=== PATIENT | female | born 1960 | race Caucasian/White ===

== ENCOUNTER 2017-03-07 09:25 | Inpatient (IN) | payer OTHER ==
[~2017-03-07] VITALS: Ht 167.6 cm; Wt 94.7 kg
[2017-03-07] VITALS (11 sets, daily range): BP systolic 108–135; BP diastolic 51–74; PULSE 80–102; RESP 18–24; TEMP 97.6–98.2; O2SAT 94–100
[2017-03-07] MEDS ORDERED: SODIUM CHLOR 0.9% 1000 ML INJ 1,000 ML IV SCH (09:53)
[2017-03-07] MEDS ORDERED: ONDANSETRON HCL 4 MG/2 ML VIAL IV PUSH ONE ×2 (10:00→12:00)
[2017-03-07] MEDS ORDERED: SODIUM CHLORIDE 0.9% FLUSH 10 ML FLUSH IV FLUSH PRN ×2 (10:00→12:15)
[2017-03-07] MEDS ORDERED: ONDANSETRON HCL 4 MG/2 ML VIAL IVP ONE (10:00)
[2017-03-07] MEDS ORDERED: MORPHINE SULFATE 8 MG/ML INJ IV PUSH ONE (10:00)
[2017-03-07 10:11] LABS: AUTOMATED NEUTROPHIL # 10.7 TH/MM3 (1.8-7.7); BASOPHIL % 0.1 % (0.0-2.0); EOSINOPHIL # 0.1 TH/MM3 (0-0.4); EOSINOPHIL % 0.6 % (0.0-4.0); HEMO FLAGS AUTO DIFF; LYMPH % 6.1 % (9.0-44.0); LYMPHOCYTE # 0.7 TH/MM3 (1.0-4.8); MEAN CELL VOLUME 81.6 FL (80.0-100.0); MEAN CORPUSCULAR HEMOGLOBIN 27.7 PG (27.0-34.0); MEAN CORPUSCULAR HGB CONC 33.9 % (32.0-36.0); MONO % 6.1 % (0.0-8.0); NEUT % 87.1 % (16.0-70.0); PLATELET COUNT 484 TH/MM3 (150-450); RED BLOOD COUNT 4.78 MIL/MM3 (4.00-5.30); RED CELL DISTRIBUTION WIDTH 12.1 % (11.6-17.2); WHITE BLOOD COUNT 12.2 TH/MM3 (4.0-11.0)
[2017-03-07 10:13] LABS: SCAN/DIFF AUTO DIFF CONFIRMED
[2017-03-07 10:21] LABS: CHLORIDE 93 MEQ/L (98-107); POTASSIUM 3.6 MEQ/L (3.5-5.1); SODIUM (NA) 129 MEQ/L (136-145)
[2017-03-07 10:23] LABS: APTT (PATIENT) 24.7 SEC (24.3-30.1); INTERNATIONAL NORMALIZED RATIO 1.2 RATIO; PROTHROMBIN TIME - PATIENT 13.6 SEC (9.8-11.6)
[2017-03-07 10:25] LABS: ANION GAP 8 MEQ/L (5-15); BICARBONATE 28.1 MEQ/L (21.0-32.0); BLOOD UREA NITROGEN 13 MG/DL (7-18)
[2017-03-07 10:27] LABS: ALT (GPT) 54 U/L (10-53)
[2017-03-07 10:28] LABS: AST (GOT) 29 U/L (15-37); GLOMERULAR FILTRATION RATE 90 ML/MIN (>89)
[2017-03-07 10:29] LABS: TOTAL BILIRUBIN ADULT 1.1 MG/DL (0.2-1.0)
--- NOTE | 2017-03-07 10:29 | PD ---
HPI Chief Complaint: Abdominal Pain Time Seen by Provider: 09:42 Travel History International Travel<30 days: No Contact w/Intl Traveler<30days: No Traveled to known affect area: No History of Present Illness HPI 56 yo F c/o nausea and vomiting over the past 2 days, severe associated with inability to tolerate oral hydration. no fever. + hx colonic mass with plan for surgery discussed but nothing scheduled. no diarrhea. pt denies flatus for the past 24 hours. pt describes sensation of abdominal distension very mild severity constant and worsening. PFSH Past Medical History Medical History: Denies Significant Hx Influenza Vaccination: No ?: Not Menopausal: Yes Past Surgical History Surgical History: No Previous Surgery Social History Alcohol Use: Yes (VERY RARE) Tobacco Use: No Substance Use: No Allergies-Medications (Allergen,Severity, Reaction): Coded Allergies: codeine (Verified Allergy, Unknown, Appetite Changes(/Dec), 03/07/17) Reported Meds & Prescriptions Reported Meds & Active Scripts Active No Active Prescriptions or Reported Medications Review of Systems Except as stated in HPI: all other systems reviewed are Neg General / Constitutional: Positive: Fever (intermittently over the past few months) Gastrointestinal: Positive: Nausea, Vomiting Physical Exam Narrative GENERAL: 56 yo F, WNWD, mild to moderate distress, speaking sentences SKIN: Warm and dry. HEAD: Atraumatic. Normocephalic. EYES: Pupils equal and round. No scleral icterus. No injection or drainage. ENT: Dry mucous membranes. No rhinorrhea or epistaxis. No otorrhea. NECK: Trachea midline. No JVD. CARDIOVASCULAR: Tachycardia of approximately 96. Regular rhythm. RESPIRATORY: No accessory muscle use. Clear to auscultation. Breath sounds equal bilaterally. GASTROINTESTINAL: Mildly distended. Diffuse TTP. MUSCULOSKELETAL: Extremities without clubbing, cyanosis, or edema. No obvious deformities. NEUROLOGICAL: Awake and alert. No obvious cranial nerve deficits. Motor grossly within normal limits. Five out of 5 muscle strength in the arms and legs. Normal speech. PSYCHIATRIC: Appropriate mood and affect; insight and judgment normal. Data Data Last Documented VS Vital Signs Date Time Temp Pulse Resp B/P (MAP) Pulse Ox O2 Delivery O2 Flow Rate FiO2 03/07/17 11:18 84 20 126/59 (81) 96 Room Air 03/07/17 10:17 97.6 VS reviewed Orders Orders Complete Blood Count With Diff (03/07/17 09:53) Comprehensive Metabolic Panel (03/07/17 09:53) Lipase (03/07/17 09:53) Lactic Acid (03/07/17 09:53) Prothrombin Time / Inr (Pt) (03/07/17 09:53) Act Partial Throm Time (Ptt) (03/07/17 09:53) Urinalysis - C+S If Indicated (03/07/17 09:53) Ct Abd/Pel W Iv Contrast(Rout) (03/07/17 09:53) Iv Access Insert/Monitor (03/07/17 09:53) Ecg Monitoring (03/07/17 09:53) Oximetry (03/07/17 09:53) Ondansetron Inj (Zofran Inj) (03/07/17 10:00) Sodium Chlor 0.9% 1000 Ml Inj (Ns 1000 M (03/07/17 09:53) Sodium Chloride 0.9% Flush (Ns Flush) (03/07/17 10:00) Morphine Inj (Morphine Inj) (03/07/17 10:00) Ondansetron Inj (Zofran Inj) (03/07/17 10:00) Iohexol 350 Inj (Omnipaque 350 Inj) (03/07/17 11:05) Piperacil-Tazo 4.5 Gm Premix (Zosyn 4.5 (03/07/17 11:30) Admit Order (Ed Use Only) (03/07/17 ) [employer] / Telemetry [id number] (03/07/17 11:46) Vital Signs (Adult) Q4H (03/07/17 11:46) Diet Npo (03/07/17 Lunch) Activity Bed Rest (03/07/17 11:46) Notify Dr: Other (03/07/17 11:46) Labs Laboratory Tests Test 03/07/17 10:00 White Blood Count 12.2 TH/MM3 Red Blood Count 4.78 MIL/MM3 Hemoglobin 13.3 GM/DL Hematocrit 39.0 % Mean Corpuscular Volume 81.6 FL Mean Corpuscular Hemoglobin 27.7 PG Mean Corpuscular Hemoglobin Concent 33.9 % Red Cell Distribution Width 12.1 % Platelet Count 484 TH/MM3 Mean Platelet Volume 7.4 FL Neutrophils (%) (Auto) 87.1 % Lymphocytes (%) (Auto) 6.1 % Monocytes (%) (Auto) 6.1 % Eosinophils (%) (Auto) 0.6 % Basophils (%) (Auto) 0.1 % Neutrophils # (Auto) 10.7 TH/MM3 Lymphocytes # (Auto) 0.7 TH/MM3 Monocytes # (Auto) 0.7 TH/MM3 Eosinophils # (Auto) 0.1 TH/MM3 Basophils # (Auto) 0.0 TH/MM3 CBC Comment AUTO DIFF Differential Comment AUTO DIFF CONFIRMED Prothrombin Time 13.6 SEC Prothromb Time International Ratio 1.2 RATIO Activated Partial Thromboplast Time 24.7 SEC Blood Urea Nitrogen 13 MG/DL Creatinine 0.67 MG/DL Random Glucose 185 MG/DL Total Protein 7.5 GM/DL Albumin 2.6 GM/DL Calcium Level 10.1 MG/DL Alkaline Phosphatase 210 U/L Aspartate Amino Transf (AST/SGOT) 29 U/L Alanine Aminotransferase (ALT/SGPT) 54 U/L Total Bilirubin 1.1 MG/DL Sodium Level 129 MEQ/L Potassium Level 3.6 MEQ/L Chloride Level 93 MEQ/L Carbon Dioxide Level 28.1 MEQ/L Anion Gap 8 MEQ/L Estimat Glomerular Filtration Rate 90 ML/MIN Lactic Acid Level 2.1 mmol/L Lipase 632 U/L MDM Medical Decision Making Medical Screen Exam Complete: Yes Emergency Medical Condition: Yes Medical Record Reviewed: Yes Differential Diagnosis Gastritis, pancreatitis, appendicitis, acute cholecystitis, ascending cholangitis, AAA, perforated viscous, mesenteric ischemia, hepatitis, cystitis, hydronephrosis/hydroureter/nephroureter calculus, mesenteric adenitis, biliary colic, small bowel obstruction, obstruction Narrative Course CBC & BMP Diagram 03/07/17 10:00 Total Protein 7.5, Albumin 2.6 L, Calcium Level 10.1, Alkaline Phosphatase 210 H , Aspartate Amino Transf (AST/SGOT) 29, Alanine Aminotransferase (ALT/SGPT) 54 H , Total Bilirubin 1.1 H Last Impressions Abdomen/Pelvis CT 03/07/17 0953 Signed Impressions: Service Date/Time: February 10:57 - CONCLUSION: 1. Large segmental sigmoid colon lesion with marked wall thickening serosal irregularity characteristic of malignancy. 2. Partial obstructive gas pattern with distention of the colon and small intestinal loops. 3. Mild ascites. 4. Suspected left lower lobe pulmonary nodule; CT of the thorax recommended for further evaluation. 5. Cholelithiasis. Findings discussed with Dr. Emery Meier MD Pt has a colonic mass with a partial obstruction. ? Infectious component per imaging and leukocytosis with neutrophilia. IVF/Zosyn started Admission to [facility], d/w Dr Ballesteros d/w Dr De La Cruz for colorectal pt to go to main for management, potential surgery No vomiting since ER arrival Critical Care Narrative Aggregate critical care time was 40 minutes. Time to perform other separately billable procedures was not included in the critical care time. My time did not include minutes spent treating any other patients simultaneously or on activities that did not directly contribute to the patient's treatment. The services I provided to this patient were to treat and/or prevent clinically significant deterioration that could result in: Sepsis, necrotic bowel I provided critical care services requiring my management, as noted below: Chart data review, documentation time, medication orders and management, vital sign assessments/reviewing monitor data, ordering and reviewing lab tests, ordering and interpreting/reviewing x-rays and diagnostic studies, care of the patient and discussion of the patient with the admitting physicians. Diagnosis Primary Impression: Colonic mass Additional Impressions: Bowel obstruction Qualified Codes: K56.609 - Unspecified intestinal obstruction, unspecified as to partial versus complete obstruction Pancreatitis Qualified Codes: K85.90 - Acute pancreatitis without necrosis or infection, unspecified Admitting Information Admitting Physician Requests: Admit Scripts No Active Prescriptions or Reported Meds Cory Land MD Mar 07, 2017 10:29
[2017-03-07 10:30] LABS: ALKALINE PHOSPHATASE 210 U/L (45-117)
[2017-03-07] MEDS ORDERED: IOHEXOL 350 MG/ML 10 ML VIAL (for RAD DIAG) IVCONTRAST ONE (11:05)
[2017-03-07] MEDS ORDERED: PIPERACIL-TAZO 4.5 GM PREMIX 100 ML IV ONE (11:30)
--- NOTE | 2017-03-07 11:37 | RADRPT ---
EXAM DATE/TIME: 03/07/2017 10:57 [facility] COMPARISON: No previous studies available for comparison. EXTERNAL COMPARISON : [facility], January 2017 INDICATIONS : Diffuse abdominal pain. Nausea and vomiting. IV CONTRAST: 85 cc Omnipaque 350 (iohexol) IV ORAL CONTRAST: No oral contrast ingested. RADIATION DOSE: 18.71 CTDIvol (mGy) MEDICAL HISTORY : None SURGICAL HISTORY : None. ENCOUNTER: Initial ACUITY: 1 day PAIN SCALE: 8/10 LOCATION: Bilateral abdomen TECHNIQUE: Volumetric scanning of the abdomen and pelvis was performed. Using automated exposure control and ad justment of the mA and/or kV according to patient size, radiation dose was kept as low as reasonably achievable to obtain optimal diagnostic quality images. DICOM format image data is available electro nically for review and comparison. FINDINGS: LOWER LUNGS: A masslike density is identified in the left lower lobe measuring approximately 1.7 cm. Right lung ba se is clear. LIVER: Homogeneous density without lesion. There is no dilation of the biliary tree. Multiple large calcifi ed gallstones are identified. Small amount of free fluid is identified along the anterior margin of t he liver. SPLEEN: Normal size without lesion. PANCREAS: Within normal limits. KIDNEYS: Normal in size and shape. There is no mass, stone or hydronephrosis. ADRENAL GLANDS: Within normal limits. VASCULAR: There is no aortic aneurysm. BOWEL/MESENTERY: Marked deformity is identified of the sigmoid colon. There is masslike segmental thickening and enlar gement of the mid sigmoid with significant aislinn-scrotal irregularity and adjacent mesenteric strandin g. The colon proximal to this segment demonstrates significant distention. There are mildly distended fluid-filled loops of small bowel throughout the abdomen. Free fluid is identified in the pelvic cul -de-sac. ABDOMINAL WALL: Within normal limits. RETROPERITONEUM: Subcentimeter retroperitoneal lymph nodes are identified. The largest is located at the aortoiliac bi furcation and measures 9 mm. BLADDER: No wall thickening or mass. REPRODUCTIVE: Within normal limits. INGUINAL: There is no lymphadenopathy or hernia. MUSCULOSKELETAL: Within normal limits for patient age. CONCLUSION: 1. Large segmental sigmoid colon lesion with marked wall thickening serosal irregularity characterist ic of malignancy. 2. Partial obstructive gas pattern with distention of the colon and small intestinal loops. 3. Mild ascites. 4. Suspected left lower lobe pulmonary nodule; CT of the thorax recommended for further evaluation. 5. Cholelithiasis. Findings discussed with Dr. Emery Meier MD on March 07, 2017 at 11:20 Board Certified Radiologist. This report was verified electronically.
[2017-03-07] MEDS ORDERED: ROCURONIUM INJ 50 MG/5 ML SYRINGE IV PUSH ONE (12:00)
[2017-03-07] MEDS ORDERED: MIDAZOLAM HCL 2 MG/2 ML VIAL IV ONE (12:00)
[2017-03-07] MEDS ORDERED: PHENYLEPH/NS 1000 MCG/10 ML SYR IV ONE (12:00)
[2017-03-07] MEDS ORDERED: SUCCINYLCHOLINE CHLORIDE 100 MG/5 ML SYRINGE IV PUSH ONE (12:00)
[2017-03-07] MEDS ORDERED: ePHEDrine/NS 25 MG/5 ML SYR IV ONE (12:00)
[2017-03-07] MEDS ORDERED: DEXAMETHASONE SOD PHOS 4 MG/ML VIAL IV ONE (12:00)
[2017-03-07] MEDS ORDERED: PROPOFOL 200 MG/20 ML AMP IV ONE (12:00)
[2017-03-07] MEDS ORDERED: LIDOCAINE HCL 1% PF 5 ML AMPULE OTHER ONE (12:00)
[2017-03-07] MEDS ORDERED: LACTATED RINGER'S 1000 ML INJ 1,000 ML IV ONE ×3 (12:00→22:00)
[2017-03-07] MEDS ORDERED: NORMOSOL R INJ 2,000 ML IV ONE (12:00)
[2017-03-07] MEDS ORDERED: BISACODYL 10 MG SUPP RECTAL PRN (12:15)
[2017-03-07] MEDS ORDERED: MAGNESIUM HYDROXIDE SUSP 30 ML CUP PO PRN (12:15)
[2017-03-07] MEDS ORDERED: SENNOSIDES 8.6 MG TAB PO PRN (12:15)
[2017-03-07] MEDS ORDERED: NALOXONE HCL 0.4 MG/ML AMP IV PUSH PRN ×2 (12:15→22:00)
[2017-03-07] MEDS ORDERED: LACTULOSE SYRUP 20 GM/30 ML CUP PO PRN (12:15)
--- NOTE | 2017-03-07 12:40 | HHI.HP ---
HPI Service [facility] Primary Care Physician Abby Lorenzo MD Admission Diagnosis Colon Mass, Obstruction, Pancreatitis Chief Complaint: abdominal pain over several days Travel History International Travel<30 Days: No Contact w/Intl Traveler <30 Da: No Traveled to Known Affected Are: No Sepsis Criteria SIRS Criteria (2 or more): WBC > 47074, < 4000 or > 10% bands History of Present Illness 56 yo F c/o nausea and vomiting over the past 2 days, severe associated with inability to tolerate oral hydration. no fever. + hx colonic mass with plan for surgery discussed but nothing scheduled. Patient had been healthy until about 1 month ago started having diarrhea and abdominal pain with one episode of blood in stool . Patient had colonoscopy and was found to have sigmoid mass and was sent to colorectal and oncology. Oncology ordered CT thorax and this was done yesterday showed lingual mass . Colorectal was to be setting up surgery but patient symptoms increased with nausea and distension and came to er. Patient had lab work and CT which was consistent with elevated lipase and CT sigmoid mass with colon dilation. Patient will be admitted with consult to colorectal and start empirically on Zosyn. [facility] Review of Systems Gastrointestinal: COMPLAINS OF: Abdominal pain, Nausea Past Family Social History Past Medical History none Past Surgical History none Reported Medications none Allergies: Coded Allergies: Codeine (Verified Allergy, Appetite Changes(Inc/Dec), 03/07/17) Social History NS,ND Physical Exam Vital Signs Vital Signs Date Time Temp Pulse Resp B/P (MAP) Pulse Ox O2 Delivery O2 Flow Rate FiO2 03/07/17 12:13 88 18 125/65 (85) 95 Room Air 03/07/17 11:18 84 20 126/59 (81) 96 Room Air 03/07/17 10:25 20 03/07/17 10:17 97.6 90 20 120/68 (85) 96 Room Air 03/07/17 10:15 90 20 120/68 (85) 96 Room Air 03/07/17 10:15 20 99 Room Air 03/07/17 09:41 98.2 102 24 135/74 (94) 96 Physical Exam GENERAL: This is a well-nourished, well-developed patient, in no apparent distress. SKIN: No rashes, ecchymoses or lesions. Cool and dry. HEAD: Atraumatic. Normocephalic. No temporal or scalp tenderness. EYES: Pupils equal round and reactive. Extraocular motions intact. No scleral icterus. No injection or drainage. ENT: Nose without bleeding, purulent drainage or septal hematoma. Throat without erythema, tonsillar hypertrophy or exudate. Uvula midline. Airway patent. NECK: Trachea midline. No JVD or lymphadenopathy. Supple, nontender, no meningeal signs. CARDIOVASCULAR: Regular rate and rhythm without murmurs, gallops, or rubs. RESPIRATORY: Clear to auscultation. Breath sounds equal bilaterally. No wheezes , rales, or rhonchi. GASTROINTESTINAL: Abdomen tender palpation through out abdomen no rebound. No hepato-splenomegaly, or palpable masses. No guarding. MUSCULOSKELETAL: Extremities without clubbing, cyanosis, or edema. No joint tenderness, effusion, or edema noted. No calf tenderness. Negative Homans sign bilaterally. NEUROLOGICAL: Awake and alert. Cranial nerves II through XII intact. Motor and sensory grossly within normal limits. Five out of 5 muscle strength in all muscle groups. Normal speech. Laboratory Laboratory Tests Test 03/07/17 10:00 White Blood Count 12.2 Red Blood Count 4.78 Hemoglobin 13.3 Hematocrit 39.0 Mean Corpuscular Volume 81.6 Mean Corpuscular Hemoglobin 27.7 Mean Corpuscular Hemoglobin Concent 33.9 Red Cell Distribution Width 12.1 Platelet Count 484 Mean Platelet Volume 7.4 Neutrophils (%) (Auto) 87.1 Lymphocytes (%) (Auto) 6.1 Monocytes (%) (Auto) 6.1 Eosinophils (%) (Auto) 0.6 Basophils (%) (Auto) 0.1 Neutrophils # (Auto) 10.7 Lymphocytes # (Auto) 0.7 Monocytes # (Auto) 0.7 Eosinophils # (Auto) 0.1 Basophils # (Auto) 0.0 CBC Comment AUTO DIFF Differential Comment AUTO DIFF CONFIRMED Prothrombin Time 13.6 Prothromb Time International Ratio 1.2 Activated Partial Thromboplast Time 24.7 Blood Urea Nitrogen 13 Creatinine 0.67 Random Glucose 185 Total Protein 7.5 Albumin 2.6 Calcium Level 10.1 Alkaline Phosphatase 210 Aspartate Amino Transf (AST/SGOT) 29 Alanine Aminotransferase (ALT/SGPT) 54 Total Bilirubin 1.1 Sodium Level 129 Potassium Level 3.6 Chloride Level 93 Carbon Dioxide Level 28.1 Anion Gap 8 Estimat Glomerular Filtration Rate 90 Lactic Acid Level 2.1 Lipase 632 Result Diagram: 03/07/17 1000 03/07/17 1000 Imaging Last 24 hours Impressions Abdomen/Pelvis CT 03/07/17 0953 Signed Impressions: Service Date/Time: February 10:57 - CONCLUSION: 1. Large segmental sigmoid colon lesion with marked wall thickening serosal irregularity characteristic of malignancy. 2. Partial obstructive gas pattern with distention of the colon and small intestinal loops. 3. Mild ascites. 4. Suspected left lower lobe pulmonary nodule; CT of the thorax recommended for further evaluation. 5. Cholelithiasis. Findings discussed with Dr. Emery Meier MD Course in er started IV fluid pain medication and antibiotics Caprini VTE Risk Assessment Caprini VTE Risk Assessment: Mod/High Risk (score >= 2) Caprini Risk Assessment Model Point Value = 1 Point Value = 2 Point Value = 3 Point Value = 5 Age 41-60 Minor surgery BMI > 25 kg/m2 Swollen legs Varicose veins or History of unexplained or recurrent spontaneous Oral contraceptives or hormone replacement Sepsis (< 1 month) Serious lung disease, including pneumonia (< 1 month) Abnormal pulmonary function Acute myocardial infarction Congestive heart failure (< 1 month) History of inflammatory bowel disease Medical patient at bed rest Age 61-74 Arthroscopic surgery Major open surgery (> 45 min) Laparoscopic surgery (> 45 min) Malignancy Confined to bed (> 72 hours) Immobilizing plaster cast Central venous access Age >= 75 History of VTE Family history of VTE Factor V Leiden Prothrombin [id number] Lupus anticoagulant Anticardiolipin antibodies Elevated serum homocysteine Heparin-induced thrombocytopenia Other congenital or acquired thrombophilia Stroke (< 1 month) Elective arthroplasty Hip, pelvis, or leg fracture Acute spinal cord injury (< 1 month) Prophylaxis Regimen Total Risk Factor Score Risk Level Prophylaxis Regimen 0-1 Low Early ambulation 2 Moderate Order ONE of the following: *Sequential Compression Device (SCD) *Heparin 5000 units SQ BID 3-4 Higher Order ONE of the following medications: *Heparin 5000 units SQ TID *Enoxaparin/Lovenox 40 mg SQ daily (WT < 150 kg, CrCl > 30 mL/min) *Enoxaparin/Lovenox 30 mg SQ daily (WT < 150 kg, CrCl > 10-29 mL/min) *Enoxaparin/Lovenox 30 mg SQ BID (WT < 150 kg, CrCl > 30 mL/min) AND/OR *Sequential Compression Device (SCD) 5 or more Highest Order ONE of the following medications: *Heparin 5000 units SQ TID (Preferred with Epidurals) *Enoxaparin/Lovenox 40 mg SQ daily (WT < 150 kg, CrCl > 30 mL/min) *Enoxaparin/Lovenox 30 mg SQ daily (WT < 150 kg, CrCl > 10-29 mL/min) *Enoxaparin/Lovenox 30 mg SQ BID (WT < 150 kg, CrCl > 30 mL/min) AND *Sequential Compression Device (SCD) Assessment and Plan Problem List: (1) Abdominal pain ICD Codes: R10.9 - Unspecified abdominal pain Plan: pain related to colon mass with bowel distension consult colorectal and give IV fluids (2) Colonic mass ICD Codes: K63.9 - Disease of intestine, unspecified Plan: consult colorectal (3) Pancreatitis ICD Codes: K85.90 - Acute pancreatitis without necrosis or infection, unspecified Plan: probably related to colon mass and bowel distension pain meds iv fluids (4) Gaseous distention of intestine determined by X-ray ICD Codes: K63.89 - Other specified diseases of intestine Plan: as above Assessment and Plan further plan as case develops Code Status full Discussed Condition With patient Physician Certification 2 Midnight Certification Type: Admission for Inpatient Services Order for Inpatient Services The services are ordered in accordance with Medicare regulations or non- Medicare payer requirements, as applicable. In the case of services not specified as inpatient-only, they are appropriately provided as inpatient services in accordance with the 2-midnight benchmark. Estimated LOS (days): 3 3 days is the estimated time the patient will need to remain in the hospital, assuming treatment plan goals are met and no additional complications. Post-Hospital Plan: Not yet determined Bryant Molina MD Mar 07, 2017 12:40
[2017-03-07] MEDS ORDERED: MORPHINE SULFATE 2 MG/ML INJ IV PUSH PRN (13:00)
[2017-03-07] MEDS: SODIUM CHLOR 0.9% 1000 ML INJ 1,000 ML IV SCH ×2 (13:04→18:39)
[2017-03-07 15:38] LABS: BLOOD, URINE LARGE (NEG); GLUCOSE,URINE NEG (NEG); KETONE, URINE NEG (NEG); NITRITE,URINE POS (NEG)
[2017-03-07] MEDS: ONDANSETRON HCL 4 MG/2 ML VIAL IVP PRN ×2 (16:09→18:05)
[2017-03-07 16:14] LABS: BACTERIA, URINE MOD /hpf; COMMENT (UR) CULTURE INDICATED; CULTURE IF INDICATED CULTURE INDICATED; MUCUS URINE FEW /lpf (OCC); SQUAMOUS EPITHELIAL CELL URINE 0-5 /hpf (0-5); URINE COLOR YELLOW (YELLW/STRAW)
[2017-03-07] MEDS: PIPERACIL-TAZO 3.375 GM PREMIX 50 ML IV SCH (18:00)
[2017-03-07] MEDS ORDERED: SUGAMMADEX SODIUM 200 MG/2 ML VIAL IV PUSH ONE ×4 (19:33→21:26)
[2017-03-07] MEDS ORDERED: DOCUSATE SODIUM 50 MG/SENNA 8.6 MG TAB PO SCH (21:00)
[2017-03-07] MEDS ORDERED: SODIUM CHLORIDE 0.9% FLUSH 10 ML FLUSH IV FLUSH SCH (21:00)
[2017-03-07] MEDS ORDERED: ACETAMINOPHEN/HYDROcodone 325 MG/5 MG TAB PO PRN ×2 (22:00)
[2017-03-07] MEDS: PCA - TOTAL MG MORPHINE DELIVERED PER SHIFT SCH (22:00)
[2017-03-07] MEDS ORDERED: POTASSIUM CHLOR 20 MEQ PREMIX 100 ML IV PRN (22:00)
[2017-03-07] MEDS ORDERED: POTASSIUM CHLOR 40 MEQ PREMIX 100 ML IV PRN (22:00)
[2017-03-07] MEDS ORDERED: ENALAPRILAT 2.5 MG/2 ML VIAL IV PUSH PRN (22:00)
[2017-03-07] MEDS ORDERED: SODIUM CHLORIDE 0.9% FLUSH 5 ML FLUSH IVF PRN (22:00)
[2017-03-07] MEDS ORDERED: ENALAPRILAT 1.25 MG/ML VIAL IV PUSH PRN (22:00)
[2017-03-07] MEDS ORDERED: ACETAMINOPHEN 325 MG TAB PO PRN (22:00)
[2017-03-07] MEDS ORDERED: ONDANSETRON HCL 4 MG/2 ML VIAL IV PUSH PRN (22:00)
[2017-03-07] MEDS: ALVIMOPAN 12 MG CAPSULE PO SCH (22:00)
[2017-03-07] MEDS ORDERED: KETOROLAC TROMETHAMINE 30 MG/ML (IVP) VIAL IVP PRN (22:00)
[2017-03-07] MEDS ORDERED: Post-op Orders (for Pharmacy) MISC XX ONE (22:00)
[2017-03-07] MEDS ORDERED: BENZOCAINE 6 MG/MENTHOL 10 MG LOZENGE BUCCAL PRN (22:00)
[2017-03-07] MEDS ORDERED: MORPHINE SULFATE 30 MG/30 ML PCA IV SCH (22:00)
[2017-03-07] MEDS ORDERED: DO NOT ADM ANY ANTICOAGULANT DRUGS PRN (22:15)
[2017-03-07] MEDS: D5-NS + KCL 20 MEQ INJ 1,000 ML IV SCH (22:30)
[2017-03-07] MEDS ORDERED: DIMETHICONE/OXYBENZONE/PADMIATE LIP BALM 4.25 GM TOPICAL ONE (22:43)
[2017-03-08] VITALS (18 sets, daily range): BP systolic 95–147; BP diastolic 57–71; PULSE 68–103; RESP 16–18; TEMP 96.9–99; O2SAT 92–98
[2017-03-08] MEDS: PIPERACIL-TAZO 3.375 GM PREMIX 50 ML IV SCH ×4 (01:00→18:21)
[2017-03-08] MEDS: D5-NS + KCL 20 MEQ INJ 1,000 ML IV SCH ×3 (03:38→12:00)
[2017-03-08] MEDS: PCA - TOTAL MG MORPHINE DELIVERED PER SHIFT SCH ×3 (05:53→21:02)
[2017-03-08 06:28] LABS: AUTOMATED NEUTROPHIL # 8.2 TH/MM3 (1.8-7.7); BASOPHIL % 0.1 % (0.0-2.0); HEMATOCRIT 32.6 % (35.0-46.0); HEMO FLAGS DIFF FINAL; LYMPH % 4.8 % (9.0-44.0); LYMPHOCYTE # 0.4 TH/MM3 (1.0-4.8); MEAN CELL VOLUME 85.5 FL (80.0-100.0); MEAN CORPUSCULAR HEMOGLOBIN 28.3 PG (27.0-34.0); MEAN CORPUSCULAR HGB CONC 33.1 % (32.0-36.0); MONO % 6.6 % (0.0-8.0); NEUT % 88.5 % (16.0-70.0); PLATELET COUNT 342 TH/MM3 (150-450); RED BLOOD COUNT 3.82 MIL/MM3 (4.00-5.30); RED CELL DISTRIBUTION WIDTH 13.1 % (11.6-17.2); WHITE BLOOD COUNT 9.2 TH/MM3 (4.0-11.0)
[2017-03-08 06:52] LABS: ANION GAP 5 MEQ/L (5-15); AST (GOT) 16 U/L (15-37); BICARBONATE 29.3 MEQ/L (21.0-32.0); BLOOD UREA NITROGEN 10 MG/DL (7-18); CHLORIDE 102 MEQ/L (98-107); GLOMERULAR FILTRATION RATE 92 ML/MIN (>89); POTASSIUM 4.8 MEQ/L (3.5-5.1); SODIUM (NA) 136 MEQ/L (136-145)
[2017-03-08 06:55] LABS: ALKALINE PHOSPHATASE 128 U/L (45-117); ALT (GPT) 30 U/L (10-53); TOTAL BILIRUBIN ADULT 0.5 MG/DL (0.2-1.0)
[2017-03-08] MEDS: PANTOPRAZOLE SODIUM 40 MG VIAL IVP SCH (09:00)
[2017-03-08] MEDS: SODIUM CHLORIDE 0.9% FLUSH 5 ML FLUSH IVF SCH ×2 (09:00→20:58)
[2017-03-08] MEDS: ALVIMOPAN 12 MG CAPSULE PO SCH ×2 (10:09→20:57)
[2017-03-08] MEDS: PANTOPRAZOLE SOD 40 MG DELAYED RELEASE TAB PO SCH (10:10)
[2017-03-08] MEDS: METOCLOPRAMIDE HCL 10 MG/2 ML VIAL IVS SCH ×2 (10:30→20:58)
--- NOTE | 2017-03-08 10:47 | HHI.PR ---
Subjective Remarks Patient seen S/P exploratory laparotomy with loop colostomy 03/[address] De La Cruz Patient drowsy post op denies pain, N/V Objective Vitals Vital Signs Date Time Temp Pulse Resp B/P (MAP) Pulse Ox O2 Delivery O2 Flow Rate FiO2 03/08/17 07:19 Nasal Cannula 2.00 03/08/17 06:02 69 03/08/17 05:53 16 03/08/17 04:49 74 03/08/17 04:46 98.5 73 95/59 (71) 98 03/08/17 03:00 68 03/08/17 02:00 77 03/08/17 01:17 97.6 81 107/67 (80) 96 03/08/17 01:00 80 03/08/17 00:01 Nasal Cannula 2.00 03/08/17 00:01 96.9 87 120/71 (87) 96 03/08/17 00:00 84 03/07/17 23:20 85 03/07/17 23:00 97.9 85 22 119/60 (79) 96 Nasal Cannula 2 03/07/17 22:45 86 24 124/62 (82) 96 Nasal Cannula 2 03/07/17 22:34 14 03/07/17 22:30 94 22 115/56 (75) 97 Nasal Cannula 2 03/07/17 22:15 98 20 117/57 (77) 98 Nasal Cannula 2 03/07/17 22:00 103 14 124/58 (80) 100 Simple Mask 5 03/07/17 21:55 98.6 104 14 118/57 (77) 100 Simple Mask 10 03/07/17 17:15 97.9 91 20 126/67 (86) 94 03/07/17 16:41 03/07/17 16:18 20 03/07/17 16:12 86 20 116/61 (79) 100 Room Air 03/07/17 14:30 95 21 03/07/17 13:44 80 18 122/63 (82) 95 Room Air 03/07/17 13:13 81 18 108/51 (70) 95 Room Air 03/07/17 12:13 88 18 125/65 (85) 95 Room Air 03/07/17 11:18 84 20 126/59 (81) 96 Room Air 03/08/17 03/08/17 03/09/17 15:00 23:00 07:00 Intake Total 1000 ml Balance 1000 ml IV Total 1000 ml Result Diagram: 03/08/17 0545 03/08/17 0554 Other Results Laboratory Tests Test 03/07/17 10:00 03/07/17 15:00 03/08/17 05:45 03/08/17 05:54 White Blood Count 12.2 TH/MM3 9.2 TH/MM3 Red Blood Count 4.78 MIL/MM3 3.82 MIL/MM3 Hemoglobin 13.3 GM/DL 10.8 GM/DL Hematocrit 39.0 % 32.6 % Mean Corpuscular Volume 81.6 FL 85.5 FL Mean Corpuscular Hemoglobin 27.7 PG 28.3 PG Mean Corpuscular Hemoglobin Concent 33.9 % 33.1 % Red Cell Distribution Width 12.1 % 13.1 % Platelet Count 484 TH/MM3 342 TH/MM3 Mean Platelet Volume 7.4 FL 7.2 FL Neutrophils (%) (Auto) 87.1 % 88.5 % Lymphocytes (%) (Auto) 6.1 % 4.8 % Monocytes (%) (Auto) 6.1 % 6.6 % Eosinophils (%) (Auto) 0.6 % 0.0 % Basophils (%) (Auto) 0.1 % 0.1 % Neutrophils # (Auto) 10.7 TH/MM3 8.2 TH/MM3 Lymphocytes # (Auto) 0.7 TH/MM3 0.4 TH/MM3 Monocytes # (Auto) 0.7 TH/MM3 0.6 TH/MM3 Eosinophils # (Auto) 0.1 TH/MM3 0.0 TH/MM3 Basophils # (Auto) 0.0 TH/MM3 0.0 TH/MM3 CBC Comment AUTO DIFF DIFF FINAL Differential Comment AUTO DIFF CONFIRMED Prothrombin Time 13.6 SEC Prothromb Time International Ratio 1.2 RATIO Activated Partial Thromboplast Time 24.7 SEC Blood Urea Nitrogen 13 MG/DL 10 MG/DL Creatinine 0.67 MG/DL 0.66 MG/DL Random Glucose 185 MG/DL 239 MG/DL Total Protein 7.5 GM/DL 5.2 GM/DL Albumin 2.6 GM/DL 1.8 GM/DL Calcium Level 10.1 MG/DL 8.7 MG/DL Alkaline Phosphatase 210 U/L 128 U/L Aspartate Amino Transf (AST/SGOT) 29 U/L 16 U/L Alanine Aminotransferase (ALT/SGPT) 54 U/L 30 U/L Total Bilirubin 1.1 MG/DL 0.5 MG/DL Sodium Level 129 MEQ/L 136 MEQ/L Potassium Level 3.6 MEQ/L 4.8 MEQ/L Chloride Level 93 MEQ/L 102 MEQ/L Carbon Dioxide Level 28.1 MEQ/L 29.3 MEQ/L Anion Gap 8 MEQ/L 5 MEQ/L Estimat Glomerular Filtration Rate 90 ML/MIN 92 ML/MIN Lactic Acid Level 2.1 mmol/L Lipase 632 U/L 200 U/L Urine Color YELLOW Urine Turbidity CLOUDY Urine pH 7.0 Urine Specific [place] GREATER THAN 1.035 Urine Protein 100 mg/dL Urine Glucose (UA) NEG mg/dL Urine Ketones NEG mg/dL Urine Occult Blood LARGE Urine Nitrite POS Urine Bilirubin NEG Urine Leukocyte Esterase SMALL Urine RBC 10-14 /hpf Urine WBC 50-99 /hpf Urine WBC Clumps FEW Urine Squamous Epithelial Cells 0-5 /hpf Urine Bacteria MOD /hpf Urine Mucus FEW /lpf Microscopic Urinalysis Comment CULTURE INDICATED Imaging Last 24 hours Impressions Abdomen/Pelvis CT 03/07/17 0953 Signed Impressions: Service Date/Time: February 10:57 - CONCLUSION: 1. Large segmental sigmoid colon lesion with marked wall thickening serosal irregularity characteristic of malignancy. 2. Partial obstructive gas pattern with distention of the colon and small intestinal loops. 3. Mild ascites. 4. Suspected left lower lobe pulmonary nodule; CT of the thorax recommended for further evaluation. 5. Cholelithiasis. Findings discussed with Dr. Emery Meier MD Objective Remarks GENERAL: This is a well-nourished, well-developed patient,drowsy post operatively SKIN: abdomen post op dressings dry and intact CARDIOVASCULAR: Regular rate and rhythm RESPIRATORY: Clear to auscultation. Breath sounds equal bilaterally. GASTROINTESTINAL: hypoactive bowel sounds NEUROLOGICAL: Awake and drowsy post-op. no focal deficits. Motor and sensory grossly within normal limits. Normal speech. A/P Problem List: (1) Abdominal pain ICD Codes: R10.9 - Unspecified abdominal pain Plan: Abdominal pain Colonic mass Consult colorectal surgery S/P Exploratory laparotomy with loop colostomy on [employer] Pancreatis- resolved probably related to colon mass and bowel distension pain meds iv fluids Lipase 632 on admission -> 03/08 lipase 200 Repeat CBC and BMP in AM DVT prophylaxis with SCDs (2) Colonic mass ICD Codes: K63.9 - Disease of intestine, unspecified Plan: see above (3) Pancreatitis ICD Codes: K85.90 - Acute pancreatitis without necrosis or infection, unspecified Plan: see above (4) Gaseous distention of intestine determined by X-ray ICD Codes: K63.89 - Other specified diseases of intestine Plan: as above Problem Qualifiers (1) Pancreatitis: Qualified Codes: K85.90 - Acute pancreatitis without necrosis or infection, unspecified Anna Potter Mar 08, 2017 10:47
[2017-03-08] MEDS ORDERED: D5-NS + KCL 20 MEQ INJ 1,000 ML IV SCH (12:00)
--- NOTE | 2017-03-08 16:22 | PD.WCN.NOT ---
Wound Consult Description: Consult for NEW OSTOMY TEACHING per Dr De La Cruz Communicated with: Patient Recommendation: Empty pouch of effluent when 1/3-1/2 full Ensure the bottom of the pouch is completely closed to avoid leaks Additional Information: Patient seen on [facility] for ostomy assessment and teaching. Ostomy Type: Colostomy (Loop colostomy in right upper quadrant) Surgeon: Abram De La Cruz MD Date of Surgery: Mar 07, 2017 Complete: Starter kit (Obtained verbal consent for kit to be sent to patient home from [facility]), Education materials, Other (2 appliances ordered from [facility] along with stoma paste, stoma powder, and maryana seals) Educated patient on: Read information booklet given. Write down any questions for next meeting on Saturday03/11/17 Ensure the bottom of the pouch is closed to avoid leaks Practice opening and closing the one piece pouch provided in the kit left at bedside. Assess stoma 2-3 hours for color and output Additional information Patient seen on [facility] for ostomy assessment and teaching. Patient had a binder in place that was removed for assessment. Stoma is noted in the upper right quadrant of the abdomen. Stoma is red, moist oval, moderately protruding with staci in place and minimally functioning with brown soft stool and ~20ml serosang liquid noted in bottom of pouch. Binder was put back into place. Questions were answered at this time. Teaching as described above. Patient was receptive and returned demonstration fo opening and closing pouch. Gisela Padilla [facility] Mar 08, 2017 16:22
--- NOTE | 2017-03-08 17:58 | HHI.FF ---
Face to Face Verification Diagnosis: (1) Bowel obstruction Physical Therapy Order: Evaluate and Treat, Improve ambulation, Strength and gait training Home Health Nursing Order: Medical education Signs/symptoms of disease process Wound care and dressing changes IV medication administration I have seen patient Raine Delgado on 03/08/17. My clinical findings support the need for the requested home health care services because: Ltd mobility - disease progression Deconditioned w/ increased weakness Limited ability to care for self Infection w/ risk of complications I certify that my clinical findings support that this patient is homebound because: Post-op weakness Unsteady gait/balance Unable to use public transportation Abram De La Cruz MD Mar 08, 2017 17:58
--- NOTE | 2017-03-08 18:01 | HHI.PR ---
Subjective Remarks C/R Surg POD # 1 afebrile, VSS UO better No N/V Objective - Vital Signs Date Time Temp Pulse Resp B/P (MAP) Pulse Ox O2 Delivery O2 Flow Rate FiO2 03/08/17 15:50 103 03/08/17 15:47 97.5 16 147/64 (91) 93 03/08/17 10:52 21 03/08/17 07:19 Nasal Cannula 2.00 Result Diagram: 03/08/17 0545 03/08/17 0554 Objective Remarks PE alert Abd - soft, flat, stoma pink, edema A/P Assessment and Plan Imp: stable post-op OOB decr IVF tx to floor Abram De La Cruz MD Mar 08, 2017 18:01
--- NOTE | 2017-03-08 19:16 | MB ---
cc: JOSIAH PETERSEN M.D. DATE OF CONSULTATION 03/07/17 REASON FOR CONSULTATION Colonic obstruction, cancer of the rectosigmoid HISTORY OF PRESENT ILLNESS Ms. Delgado is a 56-year-old female in relatively good health, having been diagnosed recently with a colonic mass. She underwent a limited colonoscopy earlier in the week documenting obstruction of the colonic lumen. The patient has been having more increased abdominal distension and nausea, vomiting since the sigmoidoscopy. She has been unable to keep any food down now for 2 days and has had very little oral liquids. Denies any fever. Does see some blood when she goes to the bathroom. Urination has been adequate but she has smaller and smaller amounts. She was seen in the emergency room and CT scan showed a large mass in the rectosigmoid with quite significant proximal colonic distension. She was therefore admitted for additional evaluation and probable colonic diversion. The patient denies any fever. Was found to have elevated amylase as an outpatient. No liver or lung metastasis have been documented. Please see the history and physical for more complete past medical and surgical history. PERTINENT PHYSICAL GENERAL: Very pleasant heavy-set female in no acute distress. HEENT: Remarkable for pink dry membranes, nonicteric sclera and skin turgor was somewhat poor. NECK: Neck was supple __ gross adenopathy. CHEST: Relatively clear, symmetrically expanding. HEAR: Heart had a regular rhythm. ABDOMEN: Abdomen was rounded and full, quite a bit of tympany. No rebound or guarding or any masses noted. ANAL INSPECTION: Revealed benign canal. Digital exam revealed some tenderness but no masses or mucosal irregularities, some fullness of the pelvic floor. LABORATORY FINDINGS All reviewed, entered in the chart. 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 Bowel is significantly dilated proximally, all the way around to the cecum with quite a bit of fecal loading. IMPRESSION Colonic obstruction due to newly diagnosed colon cancer. The patient does not look toxic but her belly is quite distended and the bowel was significantly obstructed with proximal dilatation all the way around including the cecum. Also, has quite a bit of feces in the colonic lumen. Discussed at great length with the patient and her daughter and recommended undergo exploratory laparotomy with simple loop colostomy to decompress the colon and prepare it for an inevitable surgical resection. Risk, benefits, alternatives were discussed at great length with the patient and the daughter and will set up exploratory laparotomy later this evening, as soon as the operating room has appropriate time and staffing. MD DASHAWN Leon/ZION /6:08 PM /7:04 PM
[2017-03-09] VITALS (8 sets, daily range): BP systolic 114–149; BP diastolic 56–76; PULSE 91–99; RESP 18; TEMP 97.6–100.1; O2SAT 91–96
[2017-03-09] MEDS: PIPERACIL-TAZO 3.375 GM PREMIX 50 ML IV SCH ×4 (00:28→18:41)
[2017-03-09] MEDS: D5-NS + KCL 20 MEQ INJ 1,000 ML IV SCH ×2 (00:28→17:03)
[2017-03-09] MEDS: PCA - TOTAL MG MORPHINE DELIVERED PER SHIFT SCH (05:44)
--- NOTE | 2017-03-09 08:53 | HHI.PR ---
Subjective Remarks Sitting in chair. C/O some pain. No N or V. Stooling Objective Vital Signs Date Time Temp Pulse Resp B/P (MAP) Pulse Ox O2 Delivery O2 Flow Rate FiO2 03/09/17 08:00 97.6 99 18 127/69 (88) 91 03/09/17 05:44 18 03/09/17 04:46 100.1 96 18 114/56 (75) 92 03/09/17 00:55 98.3 96 18 117/56 (76) 93 03/08/17 22:10 98.7 92 18 110/57 (74) 92 03/08/17 21:15 95 Room Air 03/08/17 21:10 99.0 101 16 124/65 (84) 94 03/08/17 21:05 93 21 03/08/17 21:02 16 03/08/17 15:50 103 03/08/17 15:47 97.5 103 16 147/64 (91) 93 03/08/17 14:00 18 03/08/17 12:00 98.0 89 16 108/57 (74) 95 03/08/17 10:52 96 21 I/O 03/08/17 03/08/17 03/08/17 03/09/17 03/09/17 03/09/17 07:00 15:00 23:00 07:00 15:00 23:00 Intake Total 340 ml 1050 ml 1042 ml 1422 ml Output Total 550 ml 700 ml 450 ml Balance -210 ml 1050 ml 342 ml 972 ml Intake Oral 240 ml 240 ml IV Total 100 ml 1050 ml 802 ml 1422 ml Output Urine Total 550 ml 550 ml 450 ml Stool Total 150 ml Result Diagram: 03/08/17 0545 03/08/17 0554 Objective Remarks VS-S Abd: obese,soft,stoma working Assessment and Plan Assessment and Plan Stable POD#2 Advance diet, Ambulate Sung Preston MD Mar 09, 2017 08:53
[2017-03-09] MEDS: PANTOPRAZOLE SODIUM 40 MG VIAL IVP SCH (09:00)
[2017-03-09] MEDS: SODIUM CHLORIDE 0.9% FLUSH 5 ML FLUSH IVF SCH ×2 (09:00→21:00)
[2017-03-09] MEDS: PANTOPRAZOLE SOD 40 MG DELAYED RELEASE TAB PO SCH (09:24)
[2017-03-09] MEDS: METOCLOPRAMIDE HCL 10 MG/2 ML VIAL IVS SCH ×2 (09:24→21:04)
[2017-03-09] MEDS: ALVIMOPAN 12 MG CAPSULE PO SCH ×2 (09:24→21:04)
[2017-03-10] VITALS: BP 111/65; PULSE 93; RESP 18; TEMP 98.8; O2SAT 95
[2017-03-10] MEDS: PIPERACIL-TAZO 3.375 GM PREMIX 50 ML IV SCH ×4 (00:30→18:31)
[2017-03-10] MEDS: D5-NS + KCL 20 MEQ INJ 1,000 ML IV SCH (05:25)
[2017-03-10 08:00] VITALS: BP 133/82; PULSE 91; RESP 16; TEMP 98.6; O2SAT 95
[2017-03-10] MEDS: SODIUM CHLORIDE 0.9% FLUSH 5 ML FLUSH IVF SCH ×2 (08:05→20:30)
[2017-03-10] MEDS: METOCLOPRAMIDE HCL 10 MG/2 ML VIAL IVS SCH ×2 (08:11→20:29)
[2017-03-10] MEDS: PANTOPRAZOLE SOD 40 MG DELAYED RELEASE TAB PO SCH (08:11)
[2017-03-10] MEDS: ALVIMOPAN 12 MG CAPSULE PO SCH ×2 (08:11→20:29)
[2017-03-10] MEDS: PANTOPRAZOLE SODIUM 40 MG VIAL IVP SCH (09:00)
[2017-03-10 12:00] VITALS: BP 121/68; PULSE 90; RESP 16; TEMP 98.5; O2SAT 95
--- NOTE | 2017-03-10 13:19 | HHI.PR ---
Subjective Remarks Stooling from colostomy and rectum. C/O indigestion. No N or V Objective Vital Signs Date Time Temp Pulse Resp B/P (MAP) Pulse Ox O2 Delivery O2 Flow Rate FiO2 03/10/17 12:00 98.5 90 16 121/68 (85) 95 03/10/17 08:00 98.6 91 16 133/82 (99) 95 03/10/17 00:00 98.8 93 18 111/65 (80) 95 03/09/17 20:00 99.6 97 18 138/74 (95) 96 03/09/17 16:38 94 21 03/09/17 16:00 97.9 97 18 149/76 (100) 94 03/09/17 14:38 96 I/O 03/09/17 03/09/17 03/09/17 03/10/17 03/10/17 03/10/17 07:00 15:00 23:00 07:00 15:00 23:00 Intake Total 1422 ml 1830 ml 901 ml Output Total 450 ml 525 ml 600 ml Balance 972 ml 1305 ml 301 ml Intake Oral 710 ml IV Total 1422 ml 1120 ml 901 ml Output Urine Total 450 ml 525 ml 600 ml # Bowel Movements 0 Result Diagram: 03/08/17 0545 03/08/17 0554 Objective Remarks VS-S Abd: obese,soft,stoma working,dressing removed. Wound clean Assessment and Plan Assessment and Plan Stable POD# Ambulate, ET nursing tomorrow Sung Preston MD Mar 10, 2017 13:19
[2017-03-10 16:00] VITALS: BP 123/72; PULSE 86; RESP 17; TEMP 97.9; O2SAT 94
[2017-03-10 20:00] VITALS: BP 139/75; PULSE 96; RESP 17; TEMP 98.8; O2SAT 95
[2017-03-11] VITALS: BP 127/74; PULSE 89; RESP 16; TEMP 98.8; O2SAT 94
[2017-03-11] MEDS: PIPERACIL-TAZO 3.375 GM PREMIX 50 ML IV SCH ×3 (00:54→13:36)
[2017-03-11] MEDS: D5-NS + KCL 20 MEQ INJ 1,000 ML IV SCH ×2 (00:54→13:45)
[2017-03-11 08:00] VITALS: BP 141/80; PULSE 84; RESP 16; TEMP 98; O2SAT 94
[2017-03-11] MEDS: PANTOPRAZOLE SOD 40 MG DELAYED RELEASE TAB PO SCH (09:00)
[2017-03-11] MEDS: SODIUM CHLORIDE 0.9% FLUSH 5 ML FLUSH IVF SCH ×2 (09:00→20:41)
[2017-03-11] MEDS: PANTOPRAZOLE SODIUM 40 MG VIAL IVP SCH (09:27)
[2017-03-11] MEDS: ALVIMOPAN 12 MG CAPSULE PO SCH ×2 (09:27→20:37)
[2017-03-11] MEDS: METOCLOPRAMIDE HCL 10 MG/2 ML VIAL IVS SCH ×2 (09:27→20:37)
[2017-03-11 11:48] VITALS: BP 142/81; PULSE 83; RESP 16; TEMP 98.1; O2SAT 93
--- NOTE | 2017-03-11 13:08 | PD.WCN.NOT ---
Wound Consult Description: Consult for NEW OSTOMY TEACHING per Dr De La Cruz Communicated with: Patient and patient at bedside Recommendation: Practice opening and closing pouch Empty pouch of effluent when 1/3-1/2 full Ensure the bottom of the pouch is completely closed to avoid leaks Additional Information: Patient seen on [address] [place] [address] for Ostomy teaching and assessment. Ostomy Type: Colostomy (Loop colostomy in right upper quadrant) Surgeon: Abram De La Cruz MD Date of Surgery: Mar 07, 2017 Complete: Starter kit (Obtained verbal consent for kit to be sent to patient home from [facility]), Education materials, Other (supplies were not obtained from [facility] that were previously ordered. New supplies ordered for patient to go home with ) Educated patient on: Write down any questions for next meeting on Saturday03/12/17 @ 0900 Ensure the bottom of the pouch is closed to avoid leaks Practice opening and closing the one piece pouch provided in the kit left at bedside. Assess stoma 2-3 hours for color and output When to empty pouch and change appliance How to measure stoma for correct size of wafer How to cut the wafer to fit stoma Additional information Patient seen on [address] [place] [address] for ostomy assessment and teaching. Stoma is noted in the upper right quadrant of the abdomen. Stoma is red, moist, oval, moderately protruding, staci in place, functioning with brown soft stool noted in pouch and on stoma itself. Stoma measures 1 3/4" tall and 2 1/2" wide requiring an appliance in size 2 3/4" however our [facility] does not have the moldable wafers in stock. Cut to fit wafer was obtained and is in patient room. Questions from patient and patient were answered at this time. Teaching as described above. Patient was receptive and returned demonstration fo opening and closing pouch. Gisela Padilla [facility] Mar 11, 2017 13:08
--- NOTE | 2017-03-11 15:49 | HHI.PR ---
Subjective Remarks C/R Surg POD # 4 afebrile, VSS UO better recent emesis Objective - Vital Signs Date Time Temp Pulse Resp B/P (MAP) Pulse Ox O2 Delivery O2 Flow Rate FiO2 03/11/17 11:48 98.1 83 16 142/81 (101) 93 03/09/17 16:38 21 03/08/17 21:15 Room Air 03/08/17 07:19 2.00 Result Diagram: 03/08/17 0545 03/08/17 0554 Objective Remarks PE alert Abd - soft, flat, stoma pink, edema, min tympany A/P Assessment and Plan Imp: OOB cont IVF try PO slowly Abram De La Cruz MD Mar 11, 2017 15:49
[2017-03-11 16:00] VITALS: BP 165/87; PULSE 95; RESP 20; TEMP 97.7; O2SAT 95
[2017-03-11 20:00] VITALS: BP 153/87; PULSE 81; RESP 18; TEMP 97.4; O2SAT 94
[2017-03-12] VITALS: BP 142/78; PULSE 87; RESP 18; TEMP 96.9; O2SAT 93
[2017-03-12] MEDS: METOCLOPRAMIDE HCL 10 MG/2 ML VIAL IVS SCH ×3 (00:52→13:01)
[2017-03-12] MEDS: PIPERACIL-TAZO 3.375 GM PREMIX 50 ML IV SCH ×4 (00:53→17:53)
[2017-03-12] MEDS: D5-NS + KCL 20 MEQ INJ 1,000 ML IV SCH ×2 (06:47→21:10)
[2017-03-12 07:58] VITALS: BP 140/78; PULSE 81; RESP 16; TEMP 96.8; O2SAT 93
[2017-03-12] MEDS: SODIUM CHLORIDE 0.9% FLUSH 5 ML FLUSH IVF SCH ×2 (09:00→21:00)
[2017-03-12] MEDS: PANTOPRAZOLE SODIUM 40 MG VIAL IVP SCH (09:00)
[2017-03-12] MEDS: PANTOPRAZOLE SOD 40 MG DELAYED RELEASE TAB PO SCH (11:07)
[2017-03-12] MEDS: ALVIMOPAN 12 MG CAPSULE PO SCH ×2 (11:07→21:10)
[2017-03-12 12:00] VITALS: BP 137/72; PULSE 86; RESP 16; TEMP 98.1; O2SAT 96
--- NOTE | 2017-03-12 13:23 | PD.WCN.NOT ---
Wound Consult Description: Consult for NEW OSTOMY TEACHING per Dr De La Cruz Communicated with: Patient Patients at bedside Recommendation: Practice opening and closing pouch Empty pouch of effluent when 1/3-1/2 full Ensure the bottom of the pouch is completely closed to avoid leaks Write down any questions you may have for our next teaching session on Saturday03/13/17 Additional Information: Patient seen on [address] [place] [address] for Ostomy assessment, teaching, and Ostomy appliance change. Ostomy Type: Colostomy (Loop colostomy in right upper quadrant) Surgeon: Abram De La Cruz MD Date of Surgery: Mar 07, 2017 Complete: Starter kit (Obtained verbal consent for kit to be sent to patient home from [facility]), Education materials, Other (No supplies in patient size are available for patient to go home with at discharge.) Educated patient on: Changing of the appliance Additional information Patient seen earlier this am on [place] for Ostomy assessment and teaching. Loop colostomy is noted to the upper right quadrant of the abdomen. Barrier is loosening around the edges at 3 o'clock where the ganesh are located on the midline abdomen with dried stool noted to the peristomal skin that has caused minimal irritation. Wafer was removed using adhesive removal wipes. Peristomal skin was cleansed with NS and gauze. Stoma is red, oval, moist, functioning with lumens noted @ 9 and 3 o'clock with mucus and brown soft stool. Stoma measures 1 3/4" tall and 2 1/2" wide with staci in place and circumferential sutures noted at the mucocutaneous junction. Irritation on peristomal skin was encrusted using stoma powder and then Cavilon skin prep. Stoma paste was used near the midline ganesh for secure fit. Cut to fit 2 3/4" appliance was applied underneath the staci ends and using gloved hands placed over wafer for warmth to help polymers activate and adhere to abdomen. Pouch was placed and the end was closed. All questions were answered and patient was encouraged to begin emptying her pouch when 1/3-1/2 full of effluent. Gisela Padilla [facility] Mar 12, 2017 13:23
[2017-03-12 15:54] VITALS: BP 142/80; PULSE 82; RESP 20; TEMP 97.5; O2SAT 95
--- NOTE | 2017-03-12 17:53 | HHI.PR ---
Subjective Remarks C/R Surg POD # 4 afebrile, VSS UO better ruthann PO Objective - Vital Signs Date Time Temp Pulse Resp B/P (MAP) Pulse Ox O2 Delivery O2 Flow Rate FiO2 03/12/17 15:54 97.5 82 20 142/80 (100) 95 03/09/17 16:38 21 03/08/17 21:15 Room Air 03/08/17 07:19 2.00 Result Diagram: 03/08/17 0545 03/08/17 0554 Objective Remarks PE alert Abd - soft, flat, stoma pink, edema, min tympany A/P Assessment and Plan Imp: OOB Hep lock IVF try PO slowly, adv Abram De La Cruz MD Mar 12, 2017 17:53
[2017-03-12] MEDS ORDERED: HYDR-3516 PO ×2 (17:57→17:58)
[2017-03-12] MEDS ORDERED: METOCLOPRAMIDE HCL 10 MG/2 ML VIAL IVS PRN (18:00)
[2017-03-12 20:00] VITALS: BP_SYST 115; BP_SYST 142; BP_DIAS 57; BP_DIAS 70; PULSE 88; PULSE 93; RESP 18; RESP 20; TEMP 97.1; TEMP 99.7; O2SAT 94; O2SAT 99
[2017-03-13] VITALS: BP 132/70; PULSE 74; RESP 18; TEMP 97.1; O2SAT 95
[2017-03-13 08:00] VITALS: BP 143/78; PULSE 80; RESP 17; TEMP 96.9; O2SAT 96
[2017-03-13] MEDS: PANTOPRAZOLE SODIUM 40 MG VIAL IVP SCH (09:00)
[2017-03-13] MEDS: SODIUM CHLORIDE 0.9% FLUSH 5 ML FLUSH IVF SCH (09:00)
[2017-03-13] MEDS: ALVIMOPAN 12 MG CAPSULE PO SCH (09:22)
[2017-03-13] MEDS: PANTOPRAZOLE SOD 40 MG DELAYED RELEASE TAB PO SCH (09:22)
--- NOTE | 2017-03-19 08:14 | MP ---
cc: JOSIAH PETERSEN M.D. DATE OF SURGERY 03/07/2017 PREOPERATIVE DIAGNOSIS Colonic obstruction PROCEDURE Exploratory laparotomy with a loop colostomy. POSTOPERATIVE DIAGNOSIS Colonic obstruction SURGEON Dr. Petersen BRAID PATTERN SETTER Dr. Mathieu Preston PROCEDURE NOTE The patient was placed in the supine position. After adequate general anesthesia, her legs were placed in [place] stirrups and supported appropriately. The abdomen and perineum were then prepped with Betadine solution and draped in the usual sterile fashion. Initially, a small right upper quadrant transverse incision was made, deepened through the subcutaneous tissue. The anterior rectus sheath was opened and the rectus muscles split along the direction of their fibers. The posterior sheath and peritoneum were opened under direct vision and the perineal cavity entered. The colon did appear to be quite distended and full of both liquid and solid stool. Attempts at bringing this large descending colon up through the incision was somewhat fraught with difficulty. There were also quite a few omental adhesions as well. It was therefore elected to open the midline of the abdomen incising the linea alba and entering access to the abdominal cavity more medially. The transverse colon was seen through the omentum and the omentum was divided with electrocautery, freeing up a loop of very dilated distended transverse colon. Avascular plane was then created in the mesentery and a Harmans drain placed. This loop was brought up through the previous right upper quadrant incision without tension and with good blood supply placing a colostomy bar through the avascular plane in the mesentery. The midline incision was then closed anatomically using a running #1 PDS suture to close the midline and the subcutaneous tissues was irrigated copiously, closing the skin with a row of surgical ganesh. The wound area washed with normal saline and a sterile dressing of Telfa and gauze applied. Finally, the colostomy was matured in the usual Jessica fashion by creating a transverse colotomy and maturing both proximal and distal limbs of the stoma with interrupted chromic catgut sutures around the circumference. At completion, both limbs of the stoma were patent and through the fascial level. A large amount of a liquid and solid stool was suctioned from both limbs noting decompression of the abdominal cavity. A sterile colostomy appliance fitted over the new stoma. The patient tolerated the procedure quite well and was brought to the recovery room in stable condition. Sponge and needle counts were correct at the end of the procedure. MD DASHAWN Leon/GABRIELA /11:59 PM /8:10 AM
== END 2017-03-13 12:00 | disposition home health service (06) | DRG 329 ==
LOC: PHED 09:25 → PHEDA 11:49 → N04B 17:11 → HCIS 20:21 → HCIN 23:14 → UNDODISIN 03-08 21:28 → N07B 03-08 21:57
PROVIDERS: ADMIT Colon & Rectal Surgery; ATTEND Colon & Rectal Surgery
PROC: 0D9 Gastrointestinal System, Drainage (ICD-10-PCS; 2017-03-07)
PROC: 0D1L0Z4 Bypass Transverse Colon to Cutaneous, Open Approach (ICD-10-PCS; principal; 2017-03-07 20:21)
DX: C18.7 Malignant neoplasm of sigmoid colon (principal); K85.90 Acute pancreatitis without necrosis or infection, unspecified; E66.9 Obesity, unspecified; Z68.33 Body mass index [BMI] 33.0-33.9, adult
CPT/HCPCS: 74177; 76937; 80053; 81001; 83605; 83690; 85025; 85610; 85730; 87077; 87086; 87186; 88305; 88312; 94150; 96361; 96365; 96375; C9113; J0330; J1100; J1885; J2250; J2270; J2370; J2405; J2543; J2765; J3010; J3480; J7030; J7120; Q9967

== ENCOUNTER → 2017-04-04 | Outpatient (CLI) | payer OTHER ==
[~2017-04-04] MED LIST: HYDR-3516 PO; MULT-65 PO; VITA1000 PO
[2017-04-04 10:05] LABS: AUTOMATED NEUTROPHIL # 8.7 TH/MM3 (1.8-7.7); BASOPHIL # 0.1 TH/MM3 (0-0.2); BASOPHIL % 0.5 % (0.0-2.0); EOSINOPHIL # 0.1 TH/MM3 (0-0.4); EOSINOPHIL % 1.2 % (0.0-4.0); HEMATOCRIT 34.7 % (35.0-46.0); HEMO FLAGS DIFF FINAL; LYMPH % 12.7 % (9.0-44.0); LYMPHOCYTE # 1.4 TH/MM3 (1.0-4.8); MEAN CELL VOLUME 82.4 FL (80.0-100.0); MEAN CORPUSCULAR HEMOGLOBIN 28.4 PG (27.0-34.0); MEAN CORPUSCULAR HGB CONC 34.5 % (32.0-36.0); MONO % 7.5 % (0.0-8.0); NEUT % 78.1 % (16.0-70.0); PLATELET COUNT 394 TH/MM3 (150-450); RED BLOOD COUNT 4.21 MIL/MM3 (4.00-5.30); RED CELL DISTRIBUTION WIDTH 14.4 % (11.6-17.2); WHITE BLOOD COUNT 11.1 TH/MM3 (4.0-11.0)
[2017-04-04 10:06] LABS: APTT (PATIENT) 24.2 SEC (24.3-30.1); INTERNATIONAL NORMALIZED RATIO 1.2 RATIO; PROTHROMBIN TIME - PATIENT 12.2 SEC (9.8-11.6)
[2017-04-04 10:12] LABS: ANION GAP 6 MEQ/L (5-15); AST (GOT) 33 U/L (15-37); BICARBONATE 30.7 MEQ/L (21.0-32.0); BLOOD UREA NITROGEN 3 MG/DL (7-18); CHLORIDE 95 MEQ/L (98-107); GLOMERULAR FILTRATION RATE 86 ML/MIN (>89); GLUCOSE,FASTING 148 MG/DL (74-99); POTASSIUM 3.2 MEQ/L (3.5-5.1); SODIUM (NA) 132 MEQ/L (136-145)
[2017-04-04 10:13] LABS: ALT (GPT) 28 U/L (10-53)
[2017-04-04 10:15] LABS: ALKALINE PHOSPHATASE 241 U/L (45-117); TOTAL BILIRUBIN ADULT 0.5 MG/DL (0.2-1.0)
--- NOTE | 2017-04-04 11:11 | RADRPT ---
EXAM DATE/TIME: 04/04/2017 09:59 [facility] COMPARISON: CT ABDOMEN & PELVIS W CONTRAST, March 07, 2017, 10:57. INDICATIONS : Evaluate for pneumonia, pneumothorax, or communicable disease. Pre-op exploratory laparotomy. MEDICAL HISTORY : None. SURGICAL HISTORY : Colostomy. ENCOUNTER: Initial ACUITY: 1 day PAIN SCORE: 0/10 LOCATION: Bilateral chest FINDINGS: Mild linear parenchymal opacity in the posterior right lung base consistent with atelectasis. Ill-def ined parenchymal opacity in the left anterior lower lobe which corresponds to large nodule on CT exam . Cardiomediastinal contours are within normal limits. Bony thorax is intact. CONCLUSION: 1. Redemonstration of a large nodular opacity in the left anterior lower lobe similar to CT exam from last month. If not already performed, CT examination of the chest is recommended for further evaluat ion. 2. Minimal right lung base atelectasis. Sean Zambrano MD on April 04, 2017 at 11:06 Board Certified Radiologist. This report was verified electronically.
[2017-04-04 14:37] LABS: BACTERIA, URINE RARE /hpf; BLOOD, URINE LARGE (NEG); COMMENT (UR) CULTURE INDICATED; CULTURE IF INDICATED CULTURE INDICATED; GLUCOSE,URINE NEG (NEG); KETONE, URINE NEG (NEG); MUCUS URINE FEW /lpf (OCC); NITRITE,URINE NEG (NEG); RENAL EPITHELIAL CELLS <1 /hpf; SQUAMOUS EPITHELIAL CELL URINE <1 /hpf (0-5); URINE COLOR LIGHT-YELLOW (YELLW/STRAW)
== END ==
LOC: CPRE 08:52
PROVIDERS: ATTEND Colon & Rectal Surgery
DX: Z01.811 Encounter for preprocedural respiratory examination (principal); Z01.812 Encounter for preprocedural laboratory examination; C18.7 Malignant neoplasm of sigmoid colon; R82.90 Unspecified abnormal findings in urine
CPT/HCPCS: 36415; 71020; 80053; 81001; 82378; 85025; 85610; 85730; 87086

== ENCOUNTER 2017-04-10 08:56 | Inpatient (IN) | payer OTHER ==
[~2017-04-10] VITALS: Ht 167.6 cm; Wt 99.0 kg
[~2017-04-10 08:56] MED LIST changes: -HYDR-3516 PO
[2017-04-10] MEDS ORDERED: PHENYLEPHRINE HCL 10 MG/ML VIAL IV ONE (12:00)
[2017-04-10] MEDS ORDERED: NORMOSOL R INJ 1,000 ML IV ONE (12:00)
[2017-04-10] MEDS ORDERED: ePHEDrine/NS 25 MG/5 ML SYRINGE IV ONE (12:00)
[2017-04-10] MEDS ORDERED: LACTATED RINGER'S 1000 ML INJ 3,000 ML IV ONE (12:00)
[2017-04-10] MEDS ORDERED: PHENYLEPH/NS 1000 MCG/10 ML SYR IV ONE (12:00)
[2017-04-10] MEDS ORDERED: NEOSTIGMINE 5 MG/5 ML SYRINGE IV PUSH ONE (12:00)
[2017-04-10] MEDS ORDERED: LIDOCAINE HCL 1% PF 5 ML SYRINGE OTHER ONE (12:00)
[2017-04-10] MEDS ORDERED: MIDAZOLAM HCL 2 MG/2 ML VIAL IV ONE (12:00)
[2017-04-10] MEDS ORDERED: DEXAMETHASONE SOD PHOS 4 MG/ML VIAL IV ONE (12:00)
[2017-04-10] MEDS ORDERED: ROCURONIUM INJ 50 MG/5 ML SYRINGE IV PUSH ONE (12:00)
[2017-04-10] MEDS ORDERED: ONDANSETRON HCL 4 MG/2 ML VIAL IV ONE (12:00)
[2017-04-10] MEDS ORDERED: GLYCOPYRROLATE 1 MG/5 ML SYRINGE IV PUSH ONE (12:00)
[2017-04-10] MEDS ORDERED: PROPOFOL 200 MG/20 ML AMP IV ONE (12:00)
[2017-04-10] MEDS ORDERED: CHLORHEXIDINE GLUCONATE 2 % 1 PACK (2 CLOTHS) TOPICAL PRN (13:00)
[2017-04-10] MEDS ORDERED: ALVIMOPAN 12 MG CAPSULE - On Call PO SCH (13:00)
[2017-04-10] MEDS ORDERED: LACTATED RINGER'S 1000 ML IV PRN (13:00)
[2017-04-10] MEDS ORDERED: SODIUM CHLORID 0.9% 500 ML IV PRN (13:00)
[2017-04-10] MEDS ORDERED: DEXT 5%-NACL 0.9% 1000 ML INJ 1,000 ML IV SCH (13:00)
[2017-04-10] MEDS ORDERED: METRONIDAZOLE 500 MG/100 ML ISONTONIC SOLN IV SCH (13:00)
[2017-04-10] MEDS ORDERED: POVIDONE IODINE 5% (ANTISEPSIS KIT) 4 APPLICATIONS EACH NARE PRN (13:00)
[2017-04-10] MEDS ORDERED: ceFAZolin 1,000 MG/NS 100 ML IV SCH ×2 (13:00)
[2017-04-10] MEDS ORDERED: METOPROLOL TARTRATE 25 MG TAB PO PRN (13:00)
--- NOTE | 2017-04-10 13:18 | PD.HP.UP ---
H&P Update Note The Pre-Admit History and Physical Examination regarding the above named patient was reviewed (including, but not limited to, vital signs, heart, lungs, co-morbid conditions), and upon re-examination it is noted that: the patient's condition has not significantly changed since the last examination. Abram De La Cruz MD Apr 10, 2017 13:18
[2017-04-10] MEDS ORDERED: ACETAMINOPHEN 1000 MG/100 ML 100 ML IV ONE (15:11)
--- NOTE | 2017-04-10 17:08 | PD.OP ---
Operative Report Date of Surgery: Apr 10, 2017 Preoperative Diagnosis: Colon cancer Postoperative Diagnosis: Colon cancer with mass invading into bladder Procedure: Cystoscopy with bilateral ureteral catheter placement Anesthesia: SHAVONNEA Surgeon: Dino Ross Education Reporter(s): None Resident Surgeon: None Operation and Findings: 56-year-old female we'll elect and undergo colon resection by Dr. De La Cruz and Dr. Infante. Request for made for bilateral ureteral catheter placement. Patient was brought to the operating room and placed in the dorsal lithotomy position. Preprocedure antibiotics were administered as well as general endotracheal tube anesthesia. She was prepped and draped in usual sterile fashion. 22 Kazakh cystoscope was inserted in the bladder hawkins cystoscopy revealed a 5 cm mass near the posterior dome region which appeared to be invasion of the colon mass into the bladder. The left ureteral orifice was identified and 5 Kazakh catheter was inserted into the left ureteral orfice without difficulty. This was repeated on the right side without difficulty. A 16 Kazakh Trujillo was inserted and the catheters were attached to the Trujillo. She tolerated procedure well. Dino Ross DO Apr 10, 2017 17:08
[2017-04-10 18:57] LABS: HEMATOCRIT 24.3 % (35.0-46.0); REVIEW FLAG FINAL
[2017-04-10] MEDS ORDERED: SUGAMMADEX SODIUM 200 MG/2 ML VIAL IV PUSH ONE ×2 (19:03)
[2017-04-10] MEDS: D5-NS + KCL 20 MEQ INJ 1,000 ML IV SCH (19:24)
[2017-04-10] MEDS ORDERED: Post-op Orders (for Pharmacy) XX ONE (19:30)
[2017-04-10] MEDS ORDERED: BENZOCAINE 6 MG/MENTHOL 10 MG LOZENGE BUCCAL PRN (19:30)
[2017-04-10] MEDS ORDERED: ENALAPRILAT 1.25 MG/ML VIAL IV PUSH PRN (19:30)
[2017-04-10] MEDS ORDERED: KETOROLAC TROMETHAMINE 30 MG/ML (IVP) VIAL IVP PRN (19:30)
[2017-04-10] MEDS ORDERED: POTASSIUM CHLOR 40 MEQ PREMIX 100 ML IV PRN (19:30)
[2017-04-10] MEDS ORDERED: ACETAMINOPHEN/HYDROcodone 325 MG/5 MG TAB PO PRN ×2 (19:30)
[2017-04-10] MEDS ORDERED: MORPHINE SULFATE 30 MG/30 ML PCA IV SCH (19:30)
[2017-04-10] MEDS ORDERED: NALOXONE HCL 0.4 MG/ML AMP IV PUSH PRN (19:30)
[2017-04-10] MEDS ORDERED: BUPIVACAINE HCL PF 0.5% 30 ML VIAL NB SCH (19:30)
[2017-04-10] MEDS ORDERED: POTASSIUM CHLOR 20 MEQ PREMIX 100 ML IV PRN (19:30)
[2017-04-10] MEDS ORDERED: ACETAMINOPHEN 325 MG TAB PO PRN (19:30)
[2017-04-10] MEDS ORDERED: ENALAPRILAT 2.5 MG/2 ML VIAL IV PUSH PRN (19:30)
[2017-04-10] MEDS ORDERED: ONDANSETRON HCL 4 MG/2 ML VIAL IV PUSH PRN (19:30)
--- NOTE | 2017-04-10 19:59 | RADRPT ---
EXAM DATE/TIME: 04/10/2017 19:40 [facility] COMPARISON: No previous studies available for comparison. INDICATIONS : Central line placement. MEDICAL HISTORY : None. SURGICAL HISTORY : Colostomy. ENCOUNTER: Initial ACUITY: 1 day PAIN SCORE: Non-responsive. LOCATION: Bilateral chest FINDINGS: There is mild basilar airspace disease. Right central line in superior vena cava. The cardiomediasti nal contours are unremarkable. Osseous structures are intact. CONCLUSION: 1. Right central line in superior vena cava. Minimal basilar airspace disease. Arnulfo Aguayo MD on April 10, 2017 at 19:56 Board Certified Radiologist. This report was verified electronically.
[2017-04-10] MEDS ORDERED: *morphine SULFATE 8 MG/ML PERIprocedure ONLY ONE (20:08)
[2017-04-10 20:23] LABS: AUTOMATED NEUTROPHIL # 18.1 TH/MM3 (1.8-7.7); BASOPHIL % 0.2 % (0.0-2.0); EOSINOPHIL % 0.1 % (0.0-4.0); HEMO FLAGS DIFF FINAL; LYMPH % 4.2 % (9.0-44.0); LYMPHOCYTE # 0.8 TH/MM3 (1.0-4.8); MEAN CELL VOLUME 83.6 FL (80.0-100.0); MEAN CORPUSCULAR HEMOGLOBIN 27.5 PG (27.0-34.0); MEAN CORPUSCULAR HGB CONC 32.8 % (32.0-36.0); MONO % 2.9 % (0.0-8.0); NEUT % 92.6 % (16.0-70.0); PLATELET COUNT 353 TH/MM3 (150-450); RED BLOOD COUNT 3.47 MIL/MM3 (4.00-5.30); RED CELL DISTRIBUTION WIDTH 15.5 % (11.6-17.2); WHITE BLOOD COUNT 19.6 TH/MM3 (4.0-11.0)
[2017-04-10] MEDS: METOCLOPRAMIDE HCL 10 MG/2 ML VIAL IVS SCH (21:00)
[2017-04-10] MEDS: PCA - TOTAL MG MORPHINE DELIVERED PER SHIFT SCH (22:00)
[2017-04-10] MEDS: metroNIDAZOLE 500 MG INJ 100 ML IV SCH (23:11)
[2017-04-11] VITALS (15 sets, daily range): BP systolic 97–123; BP diastolic 63–76; PULSE 107–138; RESP 16–18; TEMP 97.3–98.2; O2SAT 93–95
[2017-04-11] MEDS: D5-NS + KCL 20 MEQ INJ 1,000 ML IV SCH (02:58)
[2017-04-11] MEDS: PCA - TOTAL MG MORPHINE DELIVERED PER SHIFT SCH ×3 (05:43→22:00)
[2017-04-11 06:12] LABS: AUTOMATED NEUTROPHIL # 23.3 TH/MM3 (1.8-7.7); HEMATOCRIT 30.9 % (35.0-46.0); HEMO FLAGS DIFF FINAL; LYMPHOCYTE # 0.5 TH/MM3 (1.0-4.8); MEAN CELL VOLUME 85.8 FL (80.0-100.0); MEAN CORPUSCULAR HEMOGLOBIN 28.1 PG (27.0-34.0); MEAN CORPUSCULAR HGB CONC 32.8 % (32.0-36.0); MONO % 3.2 % (0.0-8.0); NEUT % 94.8 % (16.0-70.0); PLATELET COUNT 337 TH/MM3 (150-450); RED CELL DISTRIBUTION WIDTH 15.6 % (11.6-17.2); WHITE BLOOD COUNT 24.5 TH/MM3 (4.0-11.0)
[2017-04-11 07:00] LABS: BICARBONATE 25.1 MEQ/L (21.0-32.0); POTASSIUM 4.7 MEQ/L (3.5-5.1)
[2017-04-11] MEDS ORDERED: NS + KCL 20 MEQ INJ 1,000 ML ONE (07:43)
[2017-04-11] MEDS: LOW DOSE INSULIN NOVOLIN REGULAR SUPPLEMENTAL SCALE SQ SCH ×4 (07:50→21:00)
[2017-04-11] MEDS: NS + KCL 20 MEQ INJ 1,000 ML IV SCH ×2 (07:50→17:21)
[2017-04-11] MEDS ORDERED: INSULIN NovoLIN REGULAR SUPPLEMENTAL SCALE ONE (07:54)
[2017-04-11] MEDS ORDERED: DEXTROSE 50% IN WATER 50 ML VIAL(D50) IV PUSH PRN (08:00)
[2017-04-11] MEDS ORDERED: GLUCAGON 1 MG/ML VIAL OTHER PRN (08:00)
[2017-04-11] MEDS: PANTOPRAZOLE SODIUM 40 MG VIAL IVP SCH (08:40)
[2017-04-11] MEDS: metroNIDAZOLE 500 MG INJ 100 ML IV SCH ×3 (08:40→23:38)
[2017-04-11] MEDS: PANTOPRAZOLE SOD 40 MG DELAYED RELEASE TAB PO SCH (08:44)
[2017-04-11] MEDS: METOCLOPRAMIDE HCL 10 MG/2 ML VIAL IVS SCH ×2 (08:50→21:09)
[2017-04-11] MEDS ORDERED: ALVIMOPAN 12 MG CAPSULE - Post-op dosing PO SCH (09:00)
[2017-04-11] MEDS: ALVIMOPAN 12 MG CAPSULE PO SCH ×2 (09:00→21:08)
[2017-04-11] MEDS ORDERED: DIMETHICONE/OXYBENZONE/PADMIATE LIP BALM 4.25 GM TOPICAL ONE (09:10)
--- NOTE | 2017-04-11 13:41 | EKG ---
Date Performed: 04/10/2017 Time Performed: 13:51:18 PTAGE: 56 years EKG: SINUS TACHYCARDIA ABNORMAL RHYTHM ECG NO PREVIOUS TRACING DOCTOR: Armida Ash Interpretating Date/Time 04/11/2017 13:40:43
[2017-04-11] MEDS ORDERED: METOPROLOL TARTRATE 5 MG/5 ML VIAL IV PUSH ONE ×2 (15:00→16:30)
--- NOTE | 2017-04-11 16:48 | PD.WCN.NOT ---
Wound Consult Description: Consult for NEW OSTOMY TEACHING of stoma per Dr De La Cruz Communicated with: Patient who is known to financial underwriter from previous surgery with ileostomy placed on prior admission. Recommendation: Coloplast cut to fit appliance was obtained and given to patient for the next ostomy appliance change. Patient states that her has gotten really good at cutting and placing the wafer around the stoma. This wafer and pouch is new to the patient, if assistance is needed please jim financial underwriter for instructions and demonstration. Additional Information: Patient seen on [facility] for ostomy assessment. Patient will be followed up on tomorrow 04/12/17 for assistance if needed. Ostomy Type: Colostomy Surgeon: Abram De La Cruz MD Date of Surgery: Mar 07, 2017 Educated patient on: Coloplast cut to fit appliance provided Additional information Patient seen on [facility] for ostomy assessment. Patient is known to financial underwriter from previous admission. Ostomy appliance is a naif wafer/pouch cut to fit. Appliance is intact and noted with minimal effluent noted to pouch. Patient states that her cuts the appliance and assists in placing the wafer on patient. Ostomy appliance usually stays on for about 4 days. Stoma is oval and red and functioning at this time with effluent noted in pouch that was not emptied. Binder placed back on patient after assessment completed. Coloplast cut to fit appliance was obtained and given to patient for to cut and place on patient with next appliance change unless more instruction is needed. Please jim financial underwriter for assistance. Gisela Padilla [facility] Apr 11, 2017 16:48
--- NOTE | 2017-04-11 21:00 | HHI.PR ---
Subjective Remarks C/R Surg POD #1 afebrile, VSS UO goof, still bloody SUHAS mod Objective - Vital Signs Date Time Temp Pulse Resp B/P (MAP) Pulse Ox O2 Delivery O2 Flow Rate FiO2 04/11/17 20:00 97.3 113 18 115/76 (89) 94 04/11/17 19:47 21 04/11/17 12:00 Room Air 04/10/17 22:00 2 Result Diagram: 04/11/17 0600 04/11/17 0600 Objective Remarks PE alert Abd - soft, min tympany, stoma pink A/P Assessment and Plan Imp: stable post-op OOB decr IVF watch Abram Pascal MD Apr 11, 2017 21:00
[2017-04-12] VITALS (24 sets, daily range): BP systolic 118–125; BP diastolic 70–77; PULSE 74–142; RESP 14–22; TEMP 97.4–98.9; O2SAT 89–96
[2017-04-12] MEDS: NS + KCL 20 MEQ INJ 1,000 ML IV SCH ×2 (03:50→14:33)
[2017-04-12] MEDS: PCA - TOTAL MG MORPHINE DELIVERED PER SHIFT SCH ×3 (06:00→22:00)
[2017-04-12 06:57] LABS: AUTOMATED NEUTROPHIL # 29.9 TH/MM3 (1.8-7.7); BASOPHIL % 0.1 % (0.0-2.0); HEMATOCRIT 27.5 % (35.0-46.0); LYMPH % 3.5 % (9.0-44.0); LYMPHOCYTE # 1.1 TH/MM3 (1.0-4.8); MEAN CELL VOLUME 85.1 FL (80.0-100.0); MEAN CORPUSCULAR HEMOGLOBIN 28.5 PG (27.0-34.0); MEAN CORPUSCULAR HGB CONC 33.5 % (32.0-36.0); MONO % 4.2 % (0.0-8.0); NEUT % 92.2 % (16.0-70.0); PLATELET COUNT 293 TH/MM3 (150-450); RED BLOOD COUNT 3.23 MIL/MM3 (4.00-5.30); WHITE BLOOD COUNT 32.4 TH/MM3 (4.0-11.0)
[2017-04-12 07:08] LABS: HEMO FLAGS AUTO DIFF
[2017-04-12 07:36] LABS: BICARBONATE 22.3 MEQ/L (21.0-32.0); POTASSIUM 4.7 MEQ/L (3.5-5.1)
[2017-04-12 07:55] LABS: BANDS 9 % (0-6); NEUTROPHIL # MANUAL DIFF 32.1 TH/MM3 (1.8-7.7); PLATELET ESTIMATE SMEAR NORMAL (NORMAL); PLATELET MORPHOLOGY NORMAL (NORMAL); POLYS (SEG NEUTROPHILS) 90 % (16-70); SCAN/DIFF FINAL DIFF MANUAL; WBC DIFF SAMPLE 100
[2017-04-12] MEDS: LOW DOSE INSULIN NOVOLIN REGULAR SUPPLEMENTAL SCALE SQ SCH ×4 (08:00→21:00)
[2017-04-12] MEDS: metroNIDAZOLE 500 MG INJ 100 ML IV SCH ×2 (08:00→14:39)
[2017-04-12] MEDS: PANTOPRAZOLE SOD 40 MG DELAYED RELEASE TAB PO SCH (09:44)
[2017-04-12] MEDS: ALVIMOPAN 12 MG CAPSULE PO SCH ×2 (09:44→22:31)
[2017-04-12] MEDS: METOCLOPRAMIDE HCL 10 MG/2 ML VIAL IVS SCH ×2 (09:45→22:31)
[2017-04-12] MEDS: PANTOPRAZOLE SODIUM 40 MG VIAL IVP SCH (09:45)
--- NOTE | 2017-04-12 16:59 | PD.WCN.NOT ---
Wound Consult Description: Consult for NEW OSTOMY TEACHING of stoma per Dr De La Cruz Communicated with: Patient Recommendation: Appliance on right side abdomen was changed today using a cut to fit Coloplast 2 piece wafer and barrier. Empty pouch when 1/3-1/2 full of effluent. Change cut to fit pouch every 3-5 days and PRN before leaks occur. Additional Information: Patient seen on [facility] for ostomy assessment and appliance change. Ostomy Type: Colostomy Surgeon: Abram De La Cruz MD Date of Surgery: Mar 07, 2017 Educated patient on: Coloplast cut to fit appliances Additional information Patient seen on [facility] for ostomy assessment and wafer change with Coloplast cut to fit appliance. Gisela Padilla [facility] Apr 12, 2017 16:59
--- NOTE | 2017-04-12 18:05 | HHI.PR ---
Subjective Remarks C/R Surg POD #2 afebrile, VSS UO good, still bloody SUHAS mod Objective - Vital Signs Date Time Temp Pulse Resp B/P (MAP) Pulse Ox O2 Delivery O2 Flow Rate FiO2 04/12/17 17:45 99 04/12/17 15:00 98.9 14 118/74 (89) 89 04/11/17 19:47 21 04/11/17 12:00 Room Air 04/10/17 22:00 2 Result Diagram: 04/12/17 0600 04/12/17 0600 Objective Remarks PE alert Abd - soft, min tympany, stoma pink, wound dry A/P Assessment and Plan Imp: OOB decr IVF watch BS ab's for post-op bladder Abram De La Cruz MD Apr 12, 2017 18:05
[2017-04-12] MEDS ORDERED: metroNIDAZOLE 500 MG INJ 100 ML IV SCH (21:00)
[2017-04-13] VITALS (25 sets, daily range): BP systolic 113–144; BP diastolic 60–80; PULSE 89–122; RESP 14–20; TEMP 89.9–100.6; O2SAT 93–100
[2017-04-13] MEDS: metroNIDAZOLE 500 MG INJ 100 ML IV SCH ×4 (00:45→23:35)
[2017-04-13] MEDS: NS + KCL 20 MEQ INJ 1,000 ML IV SCH ×3 (05:00→20:35)
[2017-04-13] MEDS: PCA - TOTAL MG MORPHINE DELIVERED PER SHIFT SCH ×3 (05:06→20:34)
[2017-04-13 06:57] LABS: AUTOMATED NEUTROPHIL # 30.6 TH/MM3 (1.8-7.7); BASOPHIL % 0.1 % (0.0-2.0); HEMATOCRIT 24.6 % (35.0-46.0); MEAN CELL VOLUME 85.9 FL (80.0-100.0); MEAN CORPUSCULAR HEMOGLOBIN 28.5 PG (27.0-34.0); MEAN CORPUSCULAR HGB CONC 33.2 % (32.0-36.0); MONO % 3.8 % (0.0-8.0); NEUT % 93.1 % (16.0-70.0); PLATELET COUNT 295 TH/MM3 (150-450); RED BLOOD COUNT 2.86 MIL/MM3 (4.00-5.30); RED CELL DISTRIBUTION WIDTH 16.5 % (11.6-17.2); WHITE BLOOD COUNT 32.9 TH/MM3 (4.0-11.0)
[2017-04-13 07:04] LABS: HEMO FLAGS AUTO DIFF
[2017-04-13 07:15] LABS: BICARBONATE 22.6 MEQ/L (21.0-32.0); POTASSIUM 4.5 MEQ/L (3.5-5.1)
[2017-04-13] MEDS: PANTOPRAZOLE SOD 40 MG DELAYED RELEASE TAB PO SCH (09:44)
[2017-04-13] MEDS: LOW DOSE INSULIN NOVOLIN REGULAR SUPPLEMENTAL SCALE SQ SCH ×4 (09:44→20:33)
[2017-04-13] MEDS: ALVIMOPAN 12 MG CAPSULE PO SCH ×2 (09:44→21:43)
[2017-04-13] MEDS: METOCLOPRAMIDE HCL 10 MG/2 ML VIAL IVS SCH ×2 (09:45→20:33)
[2017-04-13] MEDS: PANTOPRAZOLE SODIUM 40 MG VIAL IVP SCH (09:45)
[2017-04-13 10:43] LABS: BANDS 10 % (0-6); NEUTROPHIL # MANUAL DIFF 31.9 TH/MM3 (1.8-7.7); POLYS (SEG NEUTROPHILS) 87 % (16-70); WBC DIFF SAMPLE 100
[2017-04-13 10:44] LABS: PLATELET ESTIMATE SMEAR NORMAL (NORMAL); PLATELET MORPHOLOGY NORMAL (NORMAL); SCAN/DIFF FINAL DIFF MANUAL
--- NOTE | 2017-04-13 12:01 | HHI.PR ---
Subjective Remarks POD#3 s/p LAR, diverting ileo comfortable, hungry Objective Vital Signs Date Time Temp Pulse Resp B/P (MAP) Pulse Ox O2 Delivery O2 Flow Rate FiO2 04/13/17 11:00 98.4 114 16 125/73 (90) 96 04/13/17 11:00 119 04/13/17 10:00 109 04/13/17 09:00 98 04/13/17 08:00 111 04/13/17 07:00 115 04/13/17 07:00 98.9 120 14 122/80 (94) 100 04/13/17 06:00 114 04/13/17 05:06 20 04/13/17 05:00 114 04/13/17 04:00 98.5 116 20 134/69 (90) 95 04/13/17 04:00 115 04/13/17 03:00 110 04/13/17 02:00 112 04/13/17 01:00 112 04/13/17 00:00 99.0 114 20 125/70 (88) 93 04/13/17 00:00 113 04/12/17 23:00 112 04/12/17 22:00 116 04/12/17 22:00 20 04/12/17 21:00 118 04/12/17 20:00 98.3 122 22 124/70 (88) 93 04/12/17 20:00 118 04/12/17 19:00 118 04/12/17 18:27 79 04/12/17 17:45 99 04/12/17 16:00 98 04/12/17 15:00 74 04/12/17 15:00 98.9 79 14 118/74 (89) 89 04/12/17 14:00 129 04/12/17 14:00 14 04/12/17 13:00 142 I/O 04/12/17 04/12/17 04/12/17 04/13/17 04/13/17 04/13/17 07:00 15:00 23:00 07:00 15:00 23:00 Intake Total 700 ml 480 ml 0 ml Output Total 320 ml 450 ml 1120 ml Balance -320 ml 250 ml -640 ml 0 ml Intake Oral 700 ml 480 ml 0 ml Output Urine Total 300 ml 450 ml 500 ml Stool Total 0 ml 0 ml Drainage Total 20 ml 620 ml # Bowel Movements 0 Result Diagram: 04/13/17 0515 04/13/17 0515 Objective Remarks Abdomen soft, nondistended, stoma pink, functional SUHAS serosanguinous Assessment and Plan Assessment and Plan Katalina d/c stent advance diet Agnes Thomas MD Apr 13, 2017 12:01
[2017-04-13] MEDS ORDERED: SODIUM CHLOR 0.9% 250 ML INJ 250 ML IV ONE (12:15)
--- NOTE | 2017-04-13 12:18 | EKG ---
Date Performed: 04/11/2017 Time Performed: 14:55:38 PTAGE: 56 years EKG: Sinus tachycardia Short ME interval Borderline ECG PREVIOUS TRACING : 04/10/2017 13.51 DOCTOR: Mesha Mcelroy Interpretating Date/Time 04/13/2017 12:17:37
--- NOTE | 2017-04-13 20:36 | MP ---
cc: JOSIAH PETERSEN M.D. Corrected Copy: 04/15/17 DATE OF SURGERY: 04/10/2017. PREOPERATIVE DIAGNOSIS: 1. Cancer of the rectosigmoid with obstruction. 2. Status post diverting colostomy. 3. Cholelithiasis. POSTOPERATIVE DIAGNOSIS: 1. 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 2. Paraaortic lymphadenopathy. 3. Cholelithiasis. OPERATIVE PROCEDURE PERFORMED: 1. Exploratory laparotomy with proctosigmoidectomy. En bloc segmental bladder resection. En bloc left salpingo-oophorectomy. En bloc small bowel resection. 2. Low pelvic anastomosis. 3. Small bowel resection. 4. Cholecystectomy. 5. Excision of paraaortic lymph nodes. SURGEON: Josiah Petersen MD. ELEMENTARY SCHOOL TUTOR: Ezra Moncada MD. DESCRIPTION OF THE PROCEDURE IN DETAIL: The patient was placed in the supine position. After adequate general anesthesia, her legs were placed in the universal stirrups and supported appropriately. The abdomen and perineum were then prepped with Betadine solution and draped in the usual sterile fashion. With Dr. Moncada's assistance, the abdomen was opened through a long midline incision. Upon entering the abdomen, adhesions to the parietal peritoneum were taken down. Exploration revealed a large mass in the rectosigmoid which appeared to be adherent through to the uterus of the bladder. The left tube and ovaries were encased in this mass as were several loops of small bowel. The proximal colon was palpated and felt to be pretty unremarkable. The small bowel was run from the ligament of Treitz down to the loop of terminal ileum which was densely adherent to the mass. The mass did not appear to be adherent to the retroperitoneum. The liver had no palpable masses. The gallbladder was slightly thickened and was full of gallstones. The stomach and duodenum were unremarkable. First the sigmoid colon was mobilized medially by dividing along the white line of Toldt. The left ureteral stent was identified and carefully preserved. Dissection then proceeded up the left gutter freeing the left colon off the retroperitoneum up towards the splenic flexure entering the lesser sac and taking the gastrocolic omentum off the transverse colon. Dissection then proceeded down into the pelvis the rectosigmoid off the left pelvic side wall. The right retroperitoneal space was then opened and the bowel dissected off the presacral fascia identifying a plane posteriorly. The pedicle for the superior hemorrhoidal vessels was identified and the right ureter was identified and preserved. Finally the vessel was able to be isolated and divided between Kellys obtaining hemostasis with Vicryl ties. Dissection then proceeded down identifying the rectum distal to this and this large mass. It became evident that the uterus was actually below the mass and the mass was actually the rectosigmoid invading the dome of the bladder. Therefore the left ovarian vessels were taken between Kellys obtaining hemostasis with Vicryl ties. Dissection proceeded down identifying the segment of bladder dome involved with the cancer and the bladder was entered lateral to this attachment taking the involved bladder dome en bloc with the rectosigmoid cancer. After excising the bladder dome, the anatomy was more obvious identifying the uterus and the right tube and ovary was uninvolved with the process. The rectum distal to the mass appeared to be pliable and was suitable for anastomosis. The posterior dissection continued down to the pelvic floor for full rectal mobilization. The bowel was then divided in the proximal rectum taking the mesentery between Kellys and dividing the bowel between a pursestring suture device and a Michael clamp. The bowel was then sized to reach the rectum dividing the marginal artery at the appropriate point and finally dividing the bowel between a pursestring suture device and a Michael clamp in the proximal sigmoid colon. The end of the bowel was sized to accept a 33 mm EEA stapling anvil and this was secured with a pursestring suture. Dr. Moncada inserted the EEA stapling instrument transanally under direct vision and it was brought up to the rectal pouch and the pursestring suture tied. The stapler was then reassembled to the bowel line properly, the stapler closed and fired. Upon withdrawal, two complete donuts of tissue were seen. Gentle insufflation did confirm an air-tight anastomosis. Next the bladder was closed in a transverse fashion in two layers using chromic catgut suture for the mucosal layer and Vicryl suture in a running fashion for the muscle layer. At completion, there did appear to be a secure bladder closure. Attention was then turned to the small bowel, which was divided proximal and distal to its attachment to the mass using the CHARLES stapling device. The mesentery did appear to have some lymphadenopathy and this was included in the specimen dividing the mesentery between Kellys and obtaining hemostasis with Vicryl ties. Bowel continuity was then restored by firing the CHARLES stapler across the antimesenteric ends of the bowel and closing the enterotomy with a TA-60 stapler. The mesenteric defect was closed with a Vicryl suture and a 3-0 Vicryl cross suture was placed as well. Finally attention was turned to the gallbladder. Traction was placed on the fundus of the gallbladder and the gallbladder dissected from its intrahepatic bed with electrocautery. The hepaticoduodenal ligament was reached and the cystic artery was identified and divided between Kellys obtaining hemostasis proximally with a Vicryl ligature. Dissection then proceeded to identify the cystic duct and proximal to its attachment to the common duct it was ligated with a Vicryl tie. The gallbladder was removed. The abdomen was then irrigated copiously at all sites with normal saline. Adequate hemostasis was achieved. Some lymph nodes along the paraaortic window were excised due to their large size and suspicious firm nature. A Bernardo-Brand drain was then placed down into the pelvis and brought up through a stab wound in the right lower quadrant and secured to the skin with a nylon suture. The midline incision was then closed anatomically using a running #1 PDS suture to reapproximate the midline fascia. The subcutaneous tissue was irrigated copiously and the skin closed with a row of surgical ganseh. The wound area was washed with normal saline and dried. Sterile dressing of Telfa and gauze applied. Finally a new colostomy appliance was fitted over the previous transverse colostomy. The patient tolerated the procedures quite well and was brought to the recovery room in stable condition. The sponge and needle counts were correct at the end of the procedure. MD DASHAWN Leon/JOHN /6:20 PM /8:31 AM
[2017-04-14] VITALS (25 sets, daily range): BP systolic 115–142; BP diastolic 71–86; PULSE 95–114; RESP 18; TEMP 98–99; O2SAT 94–96
[2017-04-14] MEDS: PCA - TOTAL MG MORPHINE DELIVERED PER SHIFT SCH ×3 (05:27→20:15)
--- NOTE | 2017-04-14 08:35 | HHI.PR ---
Subjective Remarks POD#4 s/p LAR, diverting ileo comfortable, feels better Objective Vital Signs Date Time Temp Pulse Resp B/P (MAP) Pulse Ox O2 Delivery O2 Flow Rate FiO2 04/14/17 07:56 98.0 104 18 136/85 (102) 94 04/14/17 06:00 98 04/14/17 05:27 18 04/14/17 05:00 96 04/14/17 04:30 98.6 99 18 136/85 94 04/14/17 04:00 95 04/14/17 04:00 98.6 99 18 136/85 (102) 94 04/14/17 03:00 100 04/14/17 02:30 98.8 99 18 120/71 94 04/14/17 02:15 98.6 106 18 122/79 96 04/14/17 02:07 98.9 106 18 127/75 95 04/14/17 02:00 106 04/14/17 01:56 98.9 106 18 127/75 (92) 94 04/14/17 01:00 106 04/14/17 00:15 99.0 111 18 115/73 94 04/14/17 00:00 111 04/14/17 00:00 98.7 111 18 116/72 (87) 94 04/14/17 00:00 98.7 111 18 116/72 94 04/13/17 23:45 89.9 112 18 117/72 93 04/13/17 23:30 100.6 117 18 113/60 94 04/13/17 23:00 116 04/13/17 22:00 116 04/13/17 21:00 112 04/13/17 20:34 18 04/13/17 20:00 113 04/13/17 20:00 99.3 113 18 127/74 (91) 94 04/13/17 18:00 89 04/13/17 17:03 110 04/13/17 16:00 112 04/13/17 15:00 114 04/13/17 15:00 98.3 114 16 144/72 (96) 96 04/13/17 14:00 112 04/13/17 13:00 122 04/13/17 12:00 89 04/13/17 11:00 98.4 114 16 125/73 (90) 96 04/13/17 11:00 119 04/13/17 10:00 109 04/13/17 09:00 98 I/O 04/13/17 04/13/17 04/13/17 04/14/17 04/14/17 04/14/17 06:59 14:59 22:59 06:59 14:59 22:59 Intake Total 480 ml 0 ml 700 ml 910 ml Output Total 1120 ml 2800 ml 1070 ml Balance -640 ml 0 ml -2100 ml -160 ml Intake Oral 480 ml 0 ml 700 ml 480 ml Packed Cells 400 ml Blood Product IV Normal Saline Flush 30 ml Output Urine Total 500 ml 600 ml 400 ml Stool Total 0 ml 1800 ml 150 ml Drainage Total 620 ml 400 ml 520 ml Result Diagram: 04/13/17 0515 04/13/17 0515 Objective Remarks Abdomen soft, nondistended wound clean stoma pink, functional SUHAS serous Assessment and Plan Assessment and Plan Still with high SUHAS output and high stoma output Increase IVF until output more reasonable MOBILIZE Agnes Thomas MD Apr 14, 2017 08:35
[2017-04-14] MEDS ORDERED: LOPERAMIDE HCL 2 MG CAP PO SCH (09:00)
[2017-04-14] MEDS: NS + KCL 20 MEQ INJ 1,000 ML IV SCH ×2 (09:54→20:21)
[2017-04-14] MEDS: PANTOPRAZOLE SOD 40 MG DELAYED RELEASE TAB PO SCH (10:03)
[2017-04-14] MEDS: metroNIDAZOLE 500 MG INJ 100 ML IV SCH ×2 (10:03→17:18)
[2017-04-14] MEDS: METOCLOPRAMIDE HCL 10 MG/2 ML VIAL IVS SCH ×2 (10:04→20:14)
[2017-04-14] MEDS: PANTOPRAZOLE SODIUM 40 MG VIAL IVP SCH (10:05)
[2017-04-14] MEDS: LOW DOSE INSULIN NOVOLIN REGULAR SUPPLEMENTAL SCALE SQ SCH ×4 (10:06→20:15)
[2017-04-14] MEDS: ALVIMOPAN 12 MG CAPSULE PO SCH ×2 (10:56→20:14)
[2017-04-15] VITALS: BP 134/78; PULSE 96; RESP 16; TEMP 98.7; O2SAT 96
[2017-04-15] MEDS: metroNIDAZOLE 500 MG INJ 100 ML IV SCH ×4 (00:46→23:26)
[2017-04-15] MEDS: NS + KCL 20 MEQ INJ 1,000 ML IV SCH ×3 (03:22→16:16)
[2017-04-15 04:41] VITALS: BP 146/79; PULSE 97
[2017-04-15] MEDS: PCA - TOTAL MG MORPHINE DELIVERED PER SHIFT SCH ×2 (04:50→13:02)
[2017-04-15 07:04] LABS: AUTOMATED NEUTROPHIL # 25.7 TH/MM3 (1.8-7.7); BASOPHIL % 0.1 % (0.0-2.0); HEMATOCRIT 31.1 % (35.0-46.0); HEMO FLAGS DIFF FINAL; LYMPH % 2.3 % (9.0-44.0); LYMPHOCYTE # 0.6 TH/MM3 (1.0-4.8); MEAN CELL VOLUME 84.1 FL (80.0-100.0); MEAN CORPUSCULAR HEMOGLOBIN 28.4 PG (27.0-34.0); MEAN CORPUSCULAR HGB CONC 33.8 % (32.0-36.0); MONO % 5.1 % (0.0-8.0); NEUT % 92.5 % (16.0-70.0); PLATELET COUNT 254 TH/MM3 (150-450); WHITE BLOOD COUNT 27.8 TH/MM3 (4.0-11.0)
[2017-04-15 07:11] LABS: BICARBONATE 23.5 MEQ/L (21.0-32.0); POTASSIUM 3.9 MEQ/L (3.5-5.1)
[2017-04-15] MEDS: PANTOPRAZOLE SODIUM 40 MG VIAL IVP SCH (07:27)
[2017-04-15] MEDS: PANTOPRAZOLE SOD 40 MG DELAYED RELEASE TAB PO SCH (07:47)
[2017-04-15] MEDS: ALVIMOPAN 12 MG CAPSULE PO SCH ×2 (07:47→19:48)
[2017-04-15] MEDS: LOW DOSE INSULIN NOVOLIN REGULAR SUPPLEMENTAL SCALE SQ SCH ×4 (07:48→19:57)
[2017-04-15] MEDS: METOCLOPRAMIDE HCL 10 MG/2 ML VIAL IVS SCH ×3 (07:48→23:26)
[2017-04-15 08:00] VITALS: BP 151/78; PULSE 101; RESP 20; TEMP 96.5; O2SAT 94
--- NOTE | 2017-04-15 10:47 | PD.WCN.NOT ---
Wound Consult Description: Consult for NEW OSTOMY TEACHING of stoma per Dr De La Cruz Communicated with: Patient JAIMEE Morris Recommendation: Empty pouch when 1/3-1/2 full of effluent. Change cut to fit pouch every 3-5 days and PRN before leaks occur. Additional Information: Patient seen on [address] [place] [address] for ostomy assessment. Ostomy Type: Colostomy Surgeon: Abram De La Cruz MD Date of Surgery: Mar 07, 2017 Educated patient on: Sitting up on side of bed or getting up to chair for meals to help with nausea. Empty pouch when 1/3-1/2 full of effluent. Change barrier every 5-7 days and PRN before leaks occur. Additional information Patient seen on [address] [place] [address] for ostomy assessment. Upon entering room, patient was eating a yogurt and c/o nausea. There was a yumiko drain in place that was full of clear yellow fluid and emptied by securities underwriter. JAIMEE Morris was notified that the drain was emptied and left in restroom for I&O's. Patient states that she has been nauseous and had green emesis earlier this am. Appliance on right side abdomen was noted to be intact with a cut to fit Coloplast 2 piece wafer and barrier. There is soft brown effluent noted in pouch that was not emptied by securities underwriter at this time. Gisela Padilla [facility] Apr 15, 2017 10:47
[2017-04-15 12:00] VITALS: BP 125/80; PULSE 101; RESP 18; TEMP 97.1; O2SAT 91
[2017-04-15 16:00] VITALS: BP 138/76; PULSE 104; RESP 18; TEMP 98.1; O2SAT 91
--- NOTE | 2017-04-15 17:49 | HHI.FF ---
Face to Face Verification Diagnosis: (1) Colonic mass Physical Therapy Order: Evaluate and Treat, Improve ambulation, Strength and gait training Home Health Nursing Order: Signs/symptoms of disease process Wound care and dressing changes [place] catheter maintenance Instructions: stoma care I have seen patient Raine Delgado on 04/15/17. My clinical findings support the need for the requested home health care services because: Ltd mobility - disease progression Deconditioned w/ increased weakness Limited ability to care for self High risk of falls Infection w/ risk of complications I certify that my clinical findings support that this patient is homebound because: Post-op weakness Unsteady gait/balance Abram De La Cruz MD Apr 15, 2017 17:48
[2017-04-15 20:02] VITALS: BP 138/86; PULSE 102; RESP 20; TEMP 96.4; O2SAT 98
--- NOTE | 2017-04-15 20:12 | HHI.PR ---
Subjective Remarks C/R Surg POD #5 afebrile, VSS UO good, less bloody SUHAS mod serous Objective - Vital Signs Date Time Temp Pulse Resp B/P (MAP) Pulse Ox O2 Delivery O2 Flow Rate FiO2 04/15/17 20:02 96.4 102 20 138/86 (103) 98 04/11/17 19:47 21 04/11/17 12:00 Room Air Result Diagram: 04/15/17 0620 04/15/17 0620 Objective Remarks PE alert, emesis Abd - soft, min tympany, stoma pink -functioning, wound dry A/P Assessment and Plan Imp: OOB decr IVF watch BS oncology f/u Abram De La Cruz MD Apr 15, 2017 20:12
[2017-04-16] VITALS: BP 131/75; PULSE 99; RESP 20; TEMP 97.3; O2SAT 95
[2017-04-16] MEDS: NS + KCL 20 MEQ INJ 1,000 ML IV SCH ×3 (00:56→23:21)
[2017-04-16] MEDS: METOCLOPRAMIDE HCL 10 MG/2 ML VIAL IVS SCH ×4 (05:11→23:06)
[2017-04-16 08:00] VITALS: BP 142/73; PULSE 98; RESP 18; TEMP 96.6; O2SAT 96
[2017-04-16] MEDS: LOW DOSE INSULIN NOVOLIN REGULAR SUPPLEMENTAL SCALE SQ SCH ×4 (08:00→23:06)
[2017-04-16] MEDS: metroNIDAZOLE 500 MG INJ 100 ML IV SCH ×2 (08:24→17:56)
[2017-04-16] MEDS: PANTOPRAZOLE SOD 40 MG DELAYED RELEASE TAB PO SCH (08:28)
[2017-04-16] MEDS: ALVIMOPAN 12 MG CAPSULE PO SCH ×2 (08:28→23:05)
[2017-04-16] MEDS: PANTOPRAZOLE SODIUM 40 MG VIAL IVP SCH (08:28)
--- NOTE | 2017-04-16 09:43 | PD.WCN.NOT ---
Wound Consult Description: Consult for NEW OSTOMY TEACHING of stoma per Dr De La Cruz Communicated with: JAIMEE Cobb Patient Recommendation: Empty pouch when 1/3-1/2 full of effluent. Change cut to fit pouch every 3-5 days and PRN before leaks occur. Additional Information: Patient seen on [address] [place] [address] for ostomy assessment, teaching, and appliance change. Ostomy Type: Colostomy Surgeon: Abram De La Cruz MD Date of Surgery: Mar 07, 2017 Complete: Other (Supplies ordered for appliance change.) Educated patient on: Changing appliance using adhesive removal wipes Cleansing skin with water only Measuring stoma Stoma appearance and function How to cut appliance if using cut to fit How to mold appliance if using a moldable appliance Allowing skin to dry, spray skin prep, and allow skin to dry thoroughly again Placing wafer (barrier) and then pouch Closing pouch at the bottom to prevent leaks Additional information Patient seen on [address] [place] [address] for ostomy appliance change, teaching, and ostomy assessment. Pouch was emptied of soft effluent. Barrier appeared to be lifting @ 3 o'clock where the ganesh are noted to midline incision. There is minimal clear yellow drainage coming from the approximated incision line. The SUHAS drain was full and emptied by internal communications writer and communicated with JAIMEE Cobb. The wafer was removed using adhesive removal wipes and peristomal skin was cleansed using a moistened washcloth with water only. Peristomal skin was then allowed to dry, skin prepped, and allowed to dry again. A hydrocolloid was placed superiorly on the peristomal skin with a gloved hand covering it to warm for better adhesion. Then a Coloplast appliance was obtained and cut to fit around stoma using stoma paste on the peristomal skin from 3-9 o'clock to help with leaks. Pouch was then closed and applied to wafer. There is an extra pouch in patient room. Patient states that she has appliances at home for her ostomy. [facility]ela Padilla [facility] Apr 16, 2017 09:43
[2017-04-16 12:00] VITALS: BP 141/74; PULSE 105; RESP 18; TEMP 98.4; O2SAT 93
[2017-04-16 16:00] VITALS: BP 138/72; PULSE 105; RESP 16; TEMP 97; O2SAT 95
--- NOTE | 2017-04-16 17:11 | HHI.PR ---
Subjective Remarks C/R Surg POD afebrile, VSS UO good, less bloody SUHAS mod serous, less Objective - Vital Signs Date Time Temp Pulse Resp B/P (MAP) Pulse Ox O2 Delivery O2 Flow Rate FiO2 04/16/17 12:00 98.4 105 18 141/74 (96 93 Result Diagram: 04/15/1761904/15/17 0620 Objective Remarks PE alert, emesis Abd - soft, min tympany, stoma pink -functioning, wound dry A/P Assessment and Plan Imp: OOB decr IVF oncology f/u Abram Robertson MD Apr 16, 2017 17:11
[2017-04-16 19:02] LABS: APTT (PATIENT) 25.9 SEC (24.3-30.1); INTERNATIONAL NORMALIZED RATIO 1.5 RATIO; PROTHROMBIN TIME - PATIENT 15.2 SEC (9.8-11.6)
[2017-04-16 20:00] VITALS: BP 143/78; PULSE 78; RESP 18; TEMP 97.1; O2SAT 97
--- NOTE | 2017-04-16 22:17 | MB ---
cc: JOSIAH PETERSEN M.D., TINA MD WEISS, RICHARD DATE OF CONSULTATION: 04/16/2017 REASON FOR CONSULTATION: New diagnosis of colon cancer and presence of lung mass. PATIENT PROFILE The patient is a 56-year-old female. She is . She has two children, a son and a daughter. She was born in [place] and has lived most of her life in [place]. She currently resides in [place], [place]. 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 She does not smoke. Alcohol intake is rare. HISTORY OF PRESENT ILLNESS: The patient is a 56-year-old female whose history dates back to December 2016 when she developed intermittent episodes of diarrhea and occasional fever. Her primary care physician ordered a CT scan of the abdomen and pelvis. She was found to have an 8.9 cm mass in the sigmoid colon. She was referred for colonoscopy. On March 05, 2017, she had upper endoscopy and lower endoscopy. She was found to have a focally ulcerated adenomatous polyp in the colon. She also had mild chronic nonspecific gastritis, which was negative for helicobacter. She was felt to clinically have a colon cancer. Additional studies included a CT scan of the thorax on 03/06/2017 which I reviewed and shows a 3.4 x 2.8 cm mass in the left medial lung field. Shortly thereafter she developed colonic obstruction and on 03/07/2017 had an exploratory laparotomy with a loop colostomy. The patient had a CT scan of the abdomen and pelvis performed prior to surgery on 03/07/2017, which showed the sigmoid colon lesion with partial obstruction, mild ascites and a left lower lobe pulmonary nodule. On 04/13/2017 Dr. Petersen performed an exploratory laparotomy with proctosigmoidectomy, en bloc segmental bladder resection, en bloc left salpingo-oophorectomy, en bloc small bowel resection. She had a low pelvic anastomosis, small bowel resection, cholecystectomy and excision of periaortic lymph nodes. The pathology showed a pathologic T4b N0 M0 colon cancer. It was low grade and felt to be moderately differentiated. The tumor directly extended into the bladder wall, all margins were uninvolved by invasive carcinoma. The tumor was 9 cm from one colonic resection margin, 19 cm from the opposite resection margin and is at least 1 cm from the bladder wall resection margin. Lymphovascular invasion was present. Perineural invasion was not identified. There were no tumor deposits. Additional findings were diverticulosis. The ovaries showed no abnormalities. The fallopian tube showed chronic salpingo-oophoritis. The resected small bowel showed chronic peritonitis but no evidence of malignancy. There was "colonic adenocarcinoma in one vascular space." Based on the path report, I believe this refers to the small bowel. The margins of resection of both segments of small bowel were negative for carcinoma. There was evidence of chronic cholecystitis and cholelithiasis. There was no residual disease in the abdomen after surgery. LABORATORY STUDIES: Current laboratory studies 04/15/2017 hemoglobin 10.5, white count 27,000, platelets 254,000, lytes, BUN and creatinine unremarkable. Glucose 158, CEA on 04/04/2017 was 9. PAST SURGICAL HISTORY As described above. PAST MEDICAL HISTORY Recent elevation of blood glucose. The patient denies having diabetes but has had elevated blood glucoses. MEDICATIONS Prior to admission: Multivitamins. ALLERGIES CODEINE, causes her heart to beat rapidly. PHYSICAL EXAMINATION: Reveals a well-appearing female. VITAL SIGNS: Blood pressure is 130/70, respiratory rate 16, pulse 100 afebrile. O2 sat 95%. Head: Head is normocephalic. Sclerae and conjunctivae are normal. Oropharynx unremarkable. No cervical, supraclavicular, axillary or inguinal adenopathy. Breasts: Without masses. Heart: Regular rhythm. Lungs: Clear. Abdomen: Soft. No hepatosplenomegaly. Extremities: No edema. Musculoskeletal: No bone pain. Neurologic: No weakness. ASSESSMENT The patient is a 56-year-old female who is status post exploratory laparotomy, proctosigmoidectomy, en bloc segmental bladder resection, en bloc left salpingo-oophorectomy, en bloc small bowel resection. She presents with adenocarcinoma of the colon, tumor size 12 cm, with direct invasion of the bladder. In addition one of the segments of small bowel contained colonic adenocarcinoma in a vascular space. The tumor from the abdomen and pelvis has been completely excised. The patient has a left lung lesion. It is unclear whether this is inflammatory, metastatic colon cancer or primary lung cancer. PLAN I will see her in several weeks after allowing her to recover. Following this, she will have a PET scan and most likely a biopsy of the left lung mass. It is imperative to determine whether this represents metastatic colon cancer, a primary lung cancer or a nonmalignant process. If this were a primary lung cancer, then one can entertain surgical resection of the lung cancer followed by adjuvant chemotherapy for the colon cancer. If she has metastatic colon cancer to the lung, then I would be inclined to give chemotherapy and following an optimal response, deal with the single lesion in the lung either with surgery or stereotactic radiotherapy. These issues will become clear with time. The case was discussed with Dr. Petersen. I reviewed with the patient her CT image of the thorax and the need to clarify what is in the lung before making a decision regarding treatment. At this point I do not feel she is fully staged other than stating that she has T4 N0 colon cancer. I will order molecular tests for BRAF, KRAS, NRAS, and microsatellite instability to help direct the choice of systemic therapy. MD AZAM Sweeney/SALLY /8:17 PM /9:55 PM MTDMicheal
[2017-04-17] VITALS: BP 143/88; PULSE 106; RESP 18; TEMP 96.5; O2SAT 98
[2017-04-17] MEDS: metroNIDAZOLE 500 MG INJ 100 ML IV SCH ×3 (00:09→16:00)
[2017-04-17] MEDS: METOCLOPRAMIDE HCL 10 MG/2 ML VIAL IVS SCH ×2 (05:02→13:59)
[2017-04-17] MEDS: LOW DOSE INSULIN NOVOLIN REGULAR SUPPLEMENTAL SCALE SQ SCH ×2 (07:54→12:00)
[2017-04-17] MEDS: PANTOPRAZOLE SODIUM 40 MG VIAL IVP SCH (07:57)
[2017-04-17] MEDS: ALVIMOPAN 12 MG CAPSULE PO SCH (07:58)
[2017-04-17] MEDS: PANTOPRAZOLE SOD 40 MG DELAYED RELEASE TAB PO SCH (07:58)
[2017-04-17 08:00] VITALS: BP 135/76; PULSE 94; RESP 18; TEMP 97; O2SAT 95
[2017-04-17] MEDS ORDERED: LIDOCAINE 1%/EPINEPHrine 1:100,000 SOLN 20 ML VIAL ONE (11:40)
[2017-04-17] MEDS ORDERED: MIDAZOLAM HCL 5 MG/5 ML VIAL ONE (11:44)
[2017-04-17] MEDS ORDERED: VANCOMYCIN HCL 1000 MG VIAL ONE (11:44)
--- NOTE | 2017-04-17 12:36 | PD.RAD ---
Post Procedure Progress Note Pre Procedure Diagnosis: (1) Colon cancer Post Procedure Diagnosis: (1) Colon cancer Procedure Date: Apr 17, 2017 Supervising Radiologist: Cody Aj JR Proceduralist/Assist: Chris Whitehead, RT(R), Mague Rai RT(R) Anesthesia: Conscious Sedation Plan of Activity Patient to Unit: ROPU Patient Condition: Good See PACS Report for procedural detail/treatment Central Venous Access Device Procedure 1 Right Internal Jugular Infusaport Placement single lumen Urdu: 8 Findings: RIJ port in good position and functions well. OK to use. Plan F/U with IR or a physician in 10-14 days for a site check Jr. Jean Marie,Cody Cuevas MD Apr 17, 2017 12:36
[2017-04-17 12:45] VITALS: BP 142/85; PULSE 109; RESP 20; TEMP 97.8; O2SAT 96
[2017-04-17] MEDS ORDERED: SODIUM CHLORIDE 0.9% FLUSH 10 ML FLUSH IVF PRN (12:45)
[2017-04-17 13:00] VITALS: BP 151/94; PULSE 103; RESP 18; O2SAT 95
--- NOTE | 2017-04-17 13:21 | RADRPT ---
EXAM DATE/TIME: 04/17/2017 12:36 [facility] COMPARISON: No previous studies available for comparison. INDICATIONS : Patient presents with colon cancer in need of port placement for treatment. MEDICAL HISTORY : Colon cancer SURGICAL HISTORY : Exploratory laparotomy with proctosigmoidectomy ENCOUNTER: Initial ACUITY: 1 week PAIN SCORE: 0/10 LOCATION: N/A FLUORO TIME: 0.5 minutes IMAGE SERIES: SEDATION TIME: 30 minutes ACCESS: Right internal jugular vein SEDATION: 1.) 2 mg midazolam (Versed) IV 2.) 100 mcg fentanyl (Sublimaze) IV Prophylactic antibiotics were administered with appropriate pre-procedure timing. Vancomycin within 2 hours of procedure, Ancef (or alternative) within 1 hour of procedure. DEVICE: 1. [address] Zimbabwean single lumen Smart Port CT PROCEDURE : 1. Continuous pulse oximetry and EKG monitoring. 2. Intravenous conscious sedation. 3. Ultrasound guidance for venous access. 4. Fluoroscopic guided implantable central venous port placement. The patient was placed supine. The neck was prepped in sterile fashion. Full sterile technique was u sed, including cap, mask, sterile gloves and gown, and a large sterile sheet. Hand hygiene and 2% ch lorhexidine Betadine was utilized per protocol for cutaneous antisepsis with appropriate dry time for site. Sterile gel and sterile probe cover were utilized for ultrasound guidance. The skin and sub cutaneous tissues were infiltrated with local anesthetic solution. Under direct ultrasound guidance, central venous access was accomplished in the targeted vessel. The ultrasound images depicting access guidance were stored and saved to PACS for permanent record. A s ubcutaneous pocket was created using blunt dissection. The port was introduced to the pocket. The c atheter tubing was fed through a subcutaneous tunnel to the venotomy site. The catheter tubing was c ut to a suitable length and then was introduced through a valved Peel-Away sheath and positioned with catheter tubing tip at the cavo-atrial junction level. The pocket incision was closed with subcutic ular Vicryl suture. Steri-Strips were applied. The port was flushed and locked with heparin solutio n per protocol. Sterile dressing was applied to the site. The patient tolerated the procedure well. Conscious sedation was performed with the prescribed dosages and duration as above in the presence of an independent trained radiology nurse to assist in the monitoring of the patient. EKG and oximetry remained stable throughout the procedure. The patient tolerated the procedure well and there were no complications. The patient was sent to post anesthesia recovery in stable condition. CONCLUSION: Uncomplicated ultrasound and fluoroscopic guided implanted central venous port catheter placement as described in detail above. An 8 Zimbabwean Power port was placed. Cody Aj Jr., MD on April 17, 2017 at 13:18 Board Certified Radiologist. This report was verified electronically.
[2017-04-17 13:30] VITALS: BP 148/78; PULSE 100; RESP 18; O2SAT 95
--- NOTE | 2017-04-17 15:55 | PD.WCN.NOT ---
Wound Consult Description: NEW OSTOMY TEACHING per Dr De La Cruz Communicated with: Patient Recommendation: Empty pouch when 1/3-1/2 full of effluent. Change cut to fit pouch every 3-5 days and PRN before leaks occur. Additional Information: Patient seen on for ostomy teaching, assessment, and appliance change. Ostomy Type: Colostomy Surgeon: Abram De La Cruz MD Date of Surgery: Mar 07, 2017 Complete: Other (Supplies ordered for appliance change.) Additional information Barrier was inspected upon arrival to patient room. There appeared to be stool leaking from underneath the appliance. Patient was sitting up in chair and decided to go to bed for the removal of the appliance. A coloplast cut to fit appliance was obtained. Adhesive removal wipes were used to remove the barrier. Once the barrier was removed it was apparent that the stool had leaked under the appliance causing irritation to the peristomal skin. The peristomal skin was cleansed with a warm washcloth and water only. The skin was allowed to air dry and then skin prepped using Cavilon skin barrier film. Stoma paste was used around the stoma circumferentially. The stoma is almost flush with the peristomal skin. The ileostomy is red, oval, moist, two lumens, suture noted inside stoma medially, and functioning with soft brown effluent noted. Coloplast cut to fit appliance was placed over and around the stoma with more stoma paste used to form a seal to protect skin from leaks. A gloved hand was placed over the appliance for a few minutes to help obtain a seal. The pouch was attached facing down and the bottom was closed securely. Supplies were left in patients room to take home with her at discharge (stoma paste, maryana seals, stoma powder, and an extra pouch). Patient states relying upon her for care of the stoma. Gisela Padilla [facility] Apr 17, 2017 15:55
== END 2017-04-17 17:03 | disposition home health service (06) | DRG 329 ==
LOC: HSDI 12:26 → HPAC 19:55 → HCIS 04-11 12:35 → N07B 04-14 18:34
PROVIDERS: ADMIT Colon & Rectal Surgery; ATTEND Colon & Rectal Surgery
PROC: 0DBQ0ZZ Excision of Anus, Open Approach (ICD-10-PCS; 2017-04-10)
PROC: 07BD0ZX Excision of Aortic Lymphatic, Open Approach, Diagnostic (ICD-10-PCS; 2017-04-10)
PROC: 07BB0ZX Excision of Mesenteric Lymphatic, Open Approach, Diagnostic (ICD-10-PCS; 2017-04-10)
PROC: 0DB80ZZ Excision of Small Intestine, Open Approach (ICD-10-PCS; 2017-04-10)
PROC: 0UT10ZZ Resection of Left Ovary, Open Approach (ICD-10-PCS; 2017-04-10)
PROC: 0UT60ZZ Resection of Left Fallopian Tube, Open Approach (ICD-10-PCS; 2017-04-10)
PROC: 0FT40ZZ Resection of Gallbladder, Open Approach (ICD-10-PCS; 2017-04-10)
PROC: 0DQV0ZZ Repair Mesentery, Open Approach (ICD-10-PCS; 2017-04-10)
PROC: 0T788DZ Dilation of Bilateral Ureters with Intraluminal Device, Via Natural or Artificial Opening Endoscopic (ICD-10-PCS; 2017-04-10)
PROC: 0DTP0ZZ Resection of Rectum, Open Approach (ICD-10-PCS; principal; 2017-04-10 15:51)
PROC: 0DBN0ZZ Excision of Sigmoid Colon, Open Approach (ICD-10-PCS; 2017-04-10 15:51)
PROC: 0JH63XZ Insertion of Tunneled Vascular Access Device into Chest Subcutaneous Tissue and Fascia, Percutaneous Approach (ICD-10-PCS; 2017-04-17)
PROC: 05HM33Z Insertion of Infusion Device into Right Internal Jugular Vein, Percutaneous Approach (ICD-10-PCS; 2017-04-17)
DX: C19 Malignant neoplasm of rectosigmoid junction (principal); K65.9 Peritonitis, unspecified; C79.11 Secondary malignant neoplasm of bladder; R18.8 Other ascites; K56.609 Unspecified intestinal obstruction, unspecified as to partial versus complete obstruction; K80.10 Calculus of gallbladder with chronic cholecystitis without obstruction; K29.70 Gastritis, unspecified, without bleeding; K57.90 Diverticulosis of intestine, part unspecified, without perforation or abscess without bleeding; N70.13 Chronic salpingitis and oophoritis; R91.8 Other nonspecific abnormal finding of lung field; Z93.3 Colostomy status
CPT/HCPCS: 36430; 36561; 71010; 76942; 77001; 80048; 82948; 84484; 85007; 85014; 85018; 85025; 85027; 85610; 85730; 86850; 86900; 86901; 86920; 88304; 88305; 88307; 93005; 94150; 99152; 99153; C1788; C9113; J0131; J0690; J1100; J1642; J2250; J2270; J2370; J2405; J2710; J2765; J3010; J3370; J3480; J7050; J7120; P9016

== ENCOUNTER 2017-05-20 06:33 | Day surgery (SDC) | payer OTHER ==
[~2017-05-20] VITALS: Ht 170.2 cm; Wt 75.0 kg
[2017-05-20] VITALS (8 sets, daily range): BP systolic 91–142; BP diastolic 48–81; PULSE 81–105; RESP 18–20; TEMP 98.4–98.6; O2SAT 91–97
[2017-05-20] MEDS ORDERED: IMPLANTED VASCULAR ACCESS DEVICE/PORT - SODIUM CHLORIDE FLUSH PRN IV FLUSH (07:00)
[2017-05-20] MEDS ORDERED: IMPLANTED VASCULAR ACCESS DEVICE/PORT - SODIUM CHLORIDE FLUSH IV FLUSH SCH (07:00)
[2017-05-20] MEDS ORDERED: SODIUM CHLOR 0.9% 1000 ML IV SCH (07:00)
[2017-05-20] MEDS ORDERED: SODIUM CHLORIDE 2 ML FLUSH PRN IV FLUSH (07:00)
[2017-05-20 07:25] LABS: INTERNATIONAL NORMALIZED RATIO 1.2 RATIO; PROTHROMBIN TIME - PATIENT 11.9 SEC (9.8-11.6)
[2017-05-20] MEDS ORDERED: LIDOCAINE HCL 1% 20 ML VIAL ONE (07:36)
[2017-05-20] MEDS ORDERED: MIDAZOLAM HCL 2 MG/2 ML VIAL ONE (07:48)
--- NOTE | 2017-05-20 08:36 | PD.RAD ---
Post CT Procedure Prog Note Pre Procedure Diagnosis: (1) Mass of left lung (2) Colon cancer Post Procedure Diagnosis: (1) Colon cancer (2) Mass of left lung Procedure Date: May 20, 2017 Supervising Radiologist: Cody Aj JR Anesthesia: Conscious Sedation Plan of Activity Patient to Unit: ROPU Patient Condition: Good See PACS Report for procedural detail/treatment Biopsy Imaging Guidance: CT Side: Left Biopsy Procedure: Lung Specimen: Core Biopsy Findings: 3 core samples taken of left lung mass. Good samples noted. No PTX on post images. Small volume intraparenchymal hemorrhage. Plan F/U CXR in 2 hrs Jr. Aj Thomas Justin MD May 20, 2017 08:36
[2017-05-20] MEDS ORDERED: SODIUM CHLORIDE 2 ML FLUSH BID IV FLUSH SCH (09:00)
--- NOTE | 2017-05-20 10:29 | RADRPT ---
EXAM DATE/TIME: 05/20/2017 08:08 [facility] COMPARISON: No previous studies available for comparison. INDICATIONS : Left lung mass. SEDATION TIME: 15 minutes BIOPSY SITE: Left lung MEDICATION(S): 1.) 2.5 mg midazolam (Versed) IV 2.) 150 mcg fentanyl (Sublimaze) IV DEVICE(S): 1.) 19 gauge coaxial 10cm 2.) 20 gauge Temno core biopsy needle 15cm MEDICAL HISTORY : Carcinoma, colon. SURGICAL HISTORY : Colon surgery ENCOUNTER: Initial ACUITY: 1 day PAIN SCORE: 0/10 LOCATION: Left chest A total of two core specimen(s) were obtained and sent to the laboratory for pathologic evaluation. PROCEDURE: 1. CT guided lung biopsy. 2. Conscious sedation with continuous EKG and oximetry monitoring. Prior to the procedure informed consent was obtained. Any appropriate prior imaging studies were rev iewed. Using automated exposure control and adjustment of the mA and/or kV according to patient size, radiation dose was kept as low as reasonably achievable to obtain optimal diagnostic quality images. DICOM format image data is available electronically for review and comparison. The site was prepped in a sterile fashion. Full sterile technique was used, including cap, mask, sherry rile gloves and gown and a large sterile sheet. Hand hygiene and 2% chlorhexidine and/or betadine/al cohol prep was utilized per protocol for cutaneous antisepsis. The skin and subcutaneous tissues wer e infiltrated with local anesthetic solution. With CT guidance the left upper lobe mass was localized. Biopsy was performed using the prescribed ne edle as above. A total of 2 core samples were obtained. Follow-up CT scan reveals no pneumothorax. A small volume of intraparenchymal hemorrhage is noted. Th e left effusion is slightly larger from the prebiopsy images. Conscious sedation was performed with the prescribed dosages and duration as above in the presence of an independent trained radiology nurse to assist in the monitoring of the patient. EKG and oximetry remained stable throughout the procedure. The patient tolerated the procedure well and there were no complications. The patient was sent to Radiology Outpatient Unit in stable condition. CONCLUSION: CT-guided core biopsy of a left upper lobe pulmonary mass. Small volume into peripheral hemorrhage wi th a slight increase in size of a left effusion. The patient is stable. Close monitoring of the patie nt will be performed. Cody Aj Jr., MD on May 20, 2017 at 10:25 Board Certified Radiologist. This report was verified electronically.
--- NOTE | 2017-05-20 10:43 | RADRPT ---
EXAM DATE/TIME: 05/20/2017 10:21 [facility] COMPARISON: CT NEEDLE BIOPSY LUNG, LEFT, May 20, 2017, 8:08. INDICATIONS : Post needle biopsy left lung MEDICAL HISTORY : Carcinoma, colon. left lung mass SURGICAL HISTORY : infusaport, colon surgery ENCOUNTER: Subsequent ACUITY: 1 day PAIN SCORE: 2/10 LOCATION: Bilateral chest FINDINGS: A single frontal expiratory view of the chest was performed. Redemonstration of left lower lobe mass and small left pleural effusion. No evidence of pneumothorax. Mediastinal structures are in the midl ine. Right IJ [id number] in good position. The cardio-mediastinal contours and bronchopulmonary markings are unremarkable for an expiratory exam . Osseous structures are intact. CONCLUSION: 1. No significant pneumothorax status post left lower lobe lung mass biopsy. Sean Zambrano MD on May 20, 2017 at 10:39 Board Certified Radiologist. This report was verified electronically.
== END 2017-05-20 12:47 | disposition home or self-care (01) ==
LOC: HRAD 06:33 → HRIP 06:37 → HRAD 12:47
PROVIDERS: ATTEND Internal Medicine Hematology & Oncology
DX: C34.92 Malignant neoplasm of unspecified part of left bronchus or lung (principal); C18.9 Malignant neoplasm of colon, unspecified
CPT/HCPCS: 32405; 71045; 77012; 85610; 85730; 86850; 86900; 86901; 88305; 88341; 88342; J1642; J2250; J3010; J7030

== ENCOUNTER → 2017-06-05 | Outpatient (CLI) | payer OTHER ==
[~2017-06-05] MED LIST changes: +DOCU1CAP26 PO; +HYDR-3516 PO
[2017-06-05 11:35] LABS: HEMATOCRIT 31.9 % (35.0-46.0); HEMOGLOBIN 10.9 GM/DL (11.6-15.3); MEAN CELL VOLUME 84.8 FL (80.0-100.0); MEAN CORPUSCULAR HEMOGLOBIN 28.8 PG (27.0-34.0); MEAN PLATELET VOLUME 7.4 FL (7.0-11.0); PLATELET COUNT 264 TH/MM3 (150-450); RED BLOOD COUNT 3.77 MIL/MM3 (4.00-5.30); RED CELL DISTRIBUTION WIDTH 14.6 % (11.6-17.2); WHITE BLOOD COUNT 6.7 TH/MM3 (4.0-11.0)
[2017-06-05 11:45] LABS: BACTERIA, URINE FEW /hpf; BILIRUBIN, URINE NEG (NEG); BLOOD, URINE SMALL (NEG); CALCIUM OXALATE CRYSTALS,URINE MANY /hpf; GLUCOSE,URINE NEG (NEG); KETONE, URINE NEG (NEG); MUCUS URINE FEW /lpf (OCC); NITRITE,URINE NEG (NEG); SQUAMOUS EPITHELIAL CELL URINE 8 /hpf (0-5); TRANSITIONAL EPI CELLS, URINE <1 /hpf; URINE COLOR YELLOW (YELLW/STRAW); URINE LEUKOCYTE ESTERASE LARGE (NEG); WHITE BLOOD CELL CLUMPS FEW
[2017-06-05 11:45] LABS: INTERNATIONAL NORMALIZED RATIO 1.1 RATIO; PROTHROMBIN TIME - PATIENT 11.4 SEC (9.8-11.6)
[2017-06-05 11:57] LABS: BICARBONATE 29.1 MEQ/L (21.0-32.0); CREATININE 0.61 MG/DL (0.50-1.00)
--- NOTE | 2017-06-07 09:53 | EKG ---
Date Performed: 06/05/2017 Time Performed: 11:06:36 PTAGE: 56 years EKG: Sinus rhythm NORMAL ECG Compared to PREVIOUS TRACING , the sinus rate has slowed. PREVIOUS TRACING 04/11/2017 14.55.38 DOCTOR: Mahendra Paul Interpretating Date/Time 06/07/2017 09:52:32
== END ==
LOC: CPRE 10:40
PROVIDERS: ATTEND Thoracic Surgery (Cardiothoracic Vascular Surgery)
DX: Z01.812 Encounter for preprocedural laboratory examination (principal); Z01.810 Encounter for preprocedural cardiovascular examination; C34.92 Malignant neoplasm of unspecified part of left bronchus or lung; B96.89 Other specified bacterial agents as the cause of diseases classified elsewhere
CPT/HCPCS: 36415; 80048; 81001; 85027; 85610; 85730; 86850; 86900; 86901; 86920; 87086; 93005

== ENCOUNTER 2017-06-06 06:12 | Inpatient (IN) | payer OTHER ==
[~2017-06-06] VITALS: Ht 170.2 cm; Wt 75.5 kg
[2017-06-06] VITALS (15 sets, daily range): BP systolic 106–119; BP diastolic 55–66; PULSE 78–93; RESP 14–17; TEMP 97.5–98; O2SAT 97–99
[~2017-06-06 06:12] MED LIST changes: -DOCU1CAP26 PO; -HYDR-3516 PO
[2017-06-06] MEDS ORDERED: CHLORHEXIDINE GLUCONATE 2 % 1 PACK (2 CLOTHS) TOPICAL PRN (06:45)
[2017-06-06] MEDS ORDERED: POVIDONE IODINE 5% (ANTISEPSIS KIT) 4 APPLICATIONS EACH NARE PRN (06:45)
[2017-06-06] MEDS ORDERED: METOPROLOL TARTRATE 25 MG TAB PO PRN (06:45)
[2017-06-06] MEDS ORDERED: SODIUM CHLORID 0.9% 500 ML IV PRN (06:45)
[2017-06-06] MEDS ORDERED: LACTATED RINGER'S 1000 ML IV PRN (06:45)
[2017-06-06] MEDS ORDERED: BUPIVACAINE LIPOSO PF 1.3% INJ 20 ML, DEXAMETHASONE INJ 4 MG, MORPHINE INJ 8 MG in SODI... IRRIGATION SCH (08:00)
[2017-06-06] MEDS ORDERED: ceFAZolin 2 GM PREMIX 50 ML ONE (09:33)
[2017-06-06] MEDS ORDERED: PROPOFOL 200 MG/20 ML AMP IV ONE (12:00)
[2017-06-06] MEDS ORDERED: SODIUM CHLOR 0.9% 250 ML INJ 250 ML IV ONE (12:00)
[2017-06-06] MEDS ORDERED: DEXAMETHASONE SOD PHOS 4 MG/ML VIAL IV ONE (12:00)
[2017-06-06] MEDS ORDERED: GLYCOPYRROLATE 1 MG/5 ML SYRINGE IV PUSH ONE (12:00)
[2017-06-06] MEDS ORDERED: PHENYLEPH/NS 1000 MCG/10 ML SYR IV ONE (12:00)
[2017-06-06] MEDS ORDERED: NS 500 ML (EXCEL BAG) INJ 500 ML IV ONE (12:00)
[2017-06-06] MEDS ORDERED: ONDANSETRON HCL 4 MG/2 ML VIAL IV ONE (12:00)
[2017-06-06] MEDS ORDERED: LACTATED RINGER'S 1000 ML INJ 1,000 ML IV ONE (12:00)
[2017-06-06] MEDS ORDERED: LIDOCAINE HCL 1% PF 5 ML SYRINGE OTHER ONE (12:00)
[2017-06-06] MEDS ORDERED: NEOSTIGMINE 5 MG/5 ML SYRINGE IV PUSH ONE (12:00)
[2017-06-06] MEDS ORDERED: NORMOSOL R INJ 1,000 ML IV ONE (12:00)
[2017-06-06] MEDS ORDERED: ESMOLOL HCL 100 MG/10 ML VIAL IV ONE (12:00)
[2017-06-06] MEDS ORDERED: VECURONIUM BROMIDE 20 MG VIAL IV ONE (12:00)
[2017-06-06] MEDS ORDERED: PHENYLEPHRINE HCL 10 MG/ML VIAL IV ONE (12:00)
[2017-06-06] MEDS ORDERED: ePHEDrine/NS 25 MG/5 ML SYRINGE IV ONE (12:00)
[2017-06-06] MEDS ORDERED: MAGNESIUM HYDROXIDE SUSP 30 ML CUP PO PRN (12:15)
[2017-06-06] MEDS ORDERED: ACETAMINOPHEN/HYDROcodone 325 MG/5 MG TAB PO PRN (12:15)
[2017-06-06] MEDS ORDERED: ACETAMINOPHEN 325 MG TAB PO PRN (12:15)
[2017-06-06] MEDS ORDERED: ONDANSETRON HCL 4 MG/2 ML VIAL IV PUSH PRN (12:15)
[2017-06-06] MEDS ORDERED: NALOXONE HCL 0.4 MG/ML AMP IV PUSH PRN (12:15)
[2017-06-06] MEDS ORDERED: MORPHINE SULFATE 30 MG/30 ML PCA IV SCH (12:15)
[2017-06-06] MEDS ORDERED: RESP: ALBUTEROL 2.5 MG/3 ML NEB (PRN) NEB (12:15)
[2017-06-06] MEDS ORDERED: SODIUM CHLORIDE 0.9% FLUSH 10 ML FLUSH IV FLUSH PRN (12:15)
[2017-06-06] MEDS ORDERED: Post-op Orders (for Pharmacy) OTHER ONE (12:40)
[2017-06-06] MEDS ORDERED: DO NOT ADM ANY ANTICOAGULANT DRUGS PRN (12:48)
[2017-06-06] MEDS ORDERED: MIDAZOLAM HCL 2 MG/2 ML VIAL ONE (12:52)
--- NOTE | 2017-06-06 13:51 | RADRPT ---
EXAM DATE/TIME: 06/06/2017 12:59 [facility] COMPARISON: CHEST SINGLE AP, April 10, 2017, 19:40. INDICATIONS : Post thoracotomy MEDICAL HISTORY : None. SURGICAL HISTORY : Left thoracotomy ENCOUNTER: Initial ACUITY: 1 day PAIN SCORE: Non-responsive. LOCATION: Left chest FINDINGS: There is a small left apical pneumothorax measuring 2.3 cm in size. Left sided chest tube is noted. T here is subcutaneous emphysema within the left chest wall. The heart is enlarged. Right internal jugu lar [id number] has its tip in the superior vena cava. Left subclavian central line has its tip in superior vena cava. Left basilar patchiness is noted consistent with atelectasis and/or infiltrate. CONCLUSION: 1. Small left apical pneumothorax measuring 2.3 cm in size. 2. Subcutaneous emphysema within the left chest wall. 3. Left basilar patchiness consistent with atelectasis and/or infiltrate. 4. Mild cardiomegaly. Kishore Earl MD on June 06, 2017 at 13:47 Board Certified Radiologist. This report was verified electronically.
[2017-06-06] MEDS: PCA - TOTAL MG MORPHINE DELIVERED PER SHIFT SCH ×2 (14:00→20:14)
--- NOTE | 2017-06-06 14:37 | PD.OP ---
cc: Jose Hendrickson MD; Willie Whitmore MD Operative Report Date of Surgery: Jun 06, 2017 Preoperative Diagnosis: Postoperative Diagnosis: Procedure: 1. Left Posterolateral Muscle Sparing Thoracotomy 2. Left Lower Lobectomy 3. Left Lingular Resection 4. Mediastinal Lymph Node Dissection 5. Intercostal Nerve Block . Surgeon: Jose Hendrickson Electric Serviceman(s): Lucia Harris Operation and Findings: PREOPERATIVE DIAGNOSIS 1. Left Lower Lobe Lung Adenocarcinoma 2. Colon Cancer POSTOPERATIVE DIAGNOSIS 1. Left Lower Lobe Lung Cancer Extending across the fissure into Upper Lobe 2. Colon Cancer PROCEDURES 1. Left Posterolateral Muscle Sparing Thoracotomy 2. Left Lower Lobectomy 3. Left Lingular Resection 4. Mediastinal Lymph Node Dissection 5. Intercostal Nerve Block SURGEON Jose Hendrickson MD INSTRUCTOR MODELING MARLEY [place] ANESTHESIA General double-lumen endotracheal. FIELD SERVICES ANALYST ROCIO Chatterjee MD DRAINS [address] COUNTS Needle, sponge, and instrument counts were correct. COMPLICATIONS None. INDICATION FOR PROCEDURE The patient is a 56 yo lady with colon cancer s/p resection and left lower lung cancer presenting for surgical resection of above pathology. DESCRIPTION OF PROCEDURE The patient was brought to the operating suite and placed in supine position. Following satisfactory induction of general double-lumen endotracheal anesthesia , the patient was placed in the right lateral decubitus position. The left chest and surrounding area was then prepped and draped in the usual sterile fashion. A standard muscle-sparing posterolateral thoracotomy was performed and the serratus anterior muscle spared. The pleural space was entered. Exploration of the left chest revealed a large mass in the superior segment of the lower lobe extending across the fissure into the upper lobe. The plan was made to proceed with a formal lower lobectomy and resection of the lingula to include the extension into the upper lobe. The inferior pulmonary ligament was divided. The pulmonary arterial supply to the lower lobe was identified, dissected free and divided as was the pulmonary venous supply. The bronchus was then dissected free, clamped and the remaining lung was insufflated without any difficulty. Specimen was removed from the chest. Similarly, lingular resection of the upper lobe was performed and the specimen sent for histological analysis. Lymph node dissections of level 5, 6, 7, 8, 9, 10 and 11 were performed along with the course of this removal. Some of these were retained with the specimen. The remaining lung was submerged under sterile water and inflated. No air leaks were identified. The parenchymal resection on the lingula was essentially right off of the upper lobe bronchus and no additional parenchyma could be resected without performing a formal left pneumonectomy to include the proximal upper lobe bronchus and the left mainstem bronchus. I did not think she would do well with a pneumonectomy. I did break scrub to have a candid conversation with the family as well as consult with Dr. Whitmore regarding my decision to not proceed with a pneumonectomy, particularly, in the setting of a synchronous malignancy ( Colon) which will require adjuvant therapy. Titanium clips were applied to the resection line for radiographic identification. At this point the closure was undertaken. A 28-Japanese chest tube was placed. Intercostal nerve block was performed at the level of the incision and 3 rib spaces above and below using Exparel with Decadron solution. The pericostal space was approximated with interrupted #1 Vicryl sutures in a pericostal fashion. The serratus fascia and Latissimus dorsi were closed with running 0-Vicryl and the remaining wounds closed with 3-0, and 4-0 Monocryl. The patient tolerated the procedure well and postoperatively went to the PACU in stable condition. Jose Hendrickson MD Jun 06, 2017 14:37
--- NOTE | 2017-06-06 14:40 | PD.CAR.PN ---
CVT Progress Note Subjective/Hospital Course: 56 yo lady with Colon cancer s/p resection with colostomy, found to have a left lung adenocarcinoma. She is now presenting for surgical resection. 06/06 Procedure: 1. Left Posterolateral Muscle Sparing Thoracotomy 2. Left Lower Lobectomy 3. Left Lingular Resection 4. Mediastinal Lymph Node Dissection 5. Intercostal Nerve Block Objective: Vital Signs Date Time Temp Pulse Resp B/P (MAP) Pulse Ox O2 Delivery O2 Flow Rate FiO2 06/06/17 14:15 97.8 78 14 114/62 (79) 97 06/06/17 07:56 98.3 76 20 113/62 (79) 98 (1) Lung cancer (2) S/P lobectomy of lung (3) Colon cancer Problem Qualifiers (1) Lung cancer: Jose Hendrickson MD Jun 06, 2017 14:40
[2017-06-06] MEDS: ACETAMINOPHEN 1000 MG/100 ML 100 ML IV SCH ×2 (15:28→15:55)
[2017-06-06] MEDS: KETOROLAC TROMETHAMINE 30 MG/ML (IVP) VIAL IV PUSH SCH ×2 (15:30→18:29)
[2017-06-06] MEDS: PANTOPRAZOLE SOD 40 MG DELAYED RELEASE TAB PO SCH (20:12)
[2017-06-06] MEDS: DOCUSATE CALCIUM 240 MG CAP PO SCH (20:12)
[2017-06-06] MEDS: SODIUM CHLORIDE 0.9% FLUSH 10 ML FLUSH IV FLUSH SCH (20:13)
[2017-06-06] MEDS: RESP: ALBUTEROL 2.5 MG/3 ML NEB (SCH) NEB (21:08)
[2017-06-07] VITALS (27 sets, daily range): BP systolic 102–136; BP diastolic 57–68; PULSE 76–100; RESP 17–20; TEMP 97.6–98.4; O2SAT 93–100
[2017-06-07] MEDS: ACETAMINOPHEN 1000 MG/100 ML 100 ML IV SCH ×2 (00:22→06:24)
[2017-06-07] MEDS: KETOROLAC TROMETHAMINE 30 MG/ML (IVP) VIAL IV PUSH SCH ×2 (00:22→06:25)
[2017-06-07] MEDS: RESP: ALBUTEROL 2.5 MG/3 ML NEB (SCH) NEB ×4 (04:51→20:47)
--- NOTE | 2017-06-07 05:25 | RADRPT ---
EXAM DATE/TIME: 06/07/2017 04:19 [facility] COMPARISON: CHEST SINGLE AP, June 06, 2017, 12:59. INDICATIONS : Evaluate for pneumothorax, left side chest tube MEDICAL HISTORY : Left Thoracotomy SURGICAL HISTORY : None. ENCOUNTER: Subsequent ACUITY: 2 days PAIN SCORE: 8/10 LOCATION: Bilateral chest FINDINGS: A single view of the chest demonstrates a left chest tube with small left pneumothorax similar to Feb ruary. Basilar airspace disease and subcutaneous air is stable. Right lung remains clear. Right-sided port and left central line tips in superior vena cava. CONCLUSION: 1. Postoperative left thoracotomy and partial lung resection. Left chest tube with stable small pneum othorax and left basilar airspace disease.. Right lung remains clear. Arnulfo Aguayo MD on June 07, 2017 at 5:22 Board Certified Radiologist. This report was verified electronically.
[2017-06-07 05:27] LABS: AUTOMATED NEUTROPHIL # 10.2 TH/MM3 (1.8-7.7); BASOPHIL % 0.3 % (0.0-2.0); HEMATOCRIT 28.7 % (35.0-46.0); HEMOGLOBIN 9.9 GM/DL (11.6-15.3); LYMPH % 12.4 % (9.0-44.0); LYMPHOCYTE # 1.6 TH/MM3 (1.0-4.8); MEAN CELL VOLUME 84.5 FL (80.0-100.0); MEAN CORPUSCULAR HGB CONC 34.3 % (32.0-36.0); MEAN PLATELET VOLUME 7.4 FL (7.0-11.0); MONO % 7.3 % (0.0-8.0); MONOCYTE # 0.9 TH/MM3 (0-0.9); PLATELET COUNT 261 TH/MM3 (150-450); RED CELL DISTRIBUTION WIDTH 14.3 % (11.6-17.2); WHITE BLOOD COUNT 12.8 TH/MM3 (4.0-11.0)
[2017-06-07 05:48] LABS: BICARBONATE 29.1 MEQ/L (21.0-32.0); CALCIUM 9.6 MG/DL (8.5-10.1); CREATININE 0.45 MG/DL (0.50-1.00)
[2017-06-07] MEDS: PCA - TOTAL MG MORPHINE DELIVERED PER SHIFT SCH ×3 (06:00→21:21)
[2017-06-07] MEDS: SODIUM CHLORIDE 0.9% FLUSH 10 ML FLUSH IV FLUSH SCH ×2 (07:51→21:00)
--- NOTE | 2017-06-07 12:28 | PD.CAR.PN ---
CVT Progress Note Subjective/Hospital Course: 56 yo lady with Colon cancer s/p resection with colostomy, found to have a left lung adenocarcinoma. She is now presenting for surgical resection. 06/06 Procedure: 1. Left Posterolateral Muscle Sparing Thoracotomy 2. Left Lower Lobectomy 3. Left Lingular Resection 4. Mediastinal Lymph Node Dissection 5. Intercostal Nerve Block 06/07 Doing well 1+ air-leak Maintain CT to drainage Objective: Vital Signs Date Time Temp Pulse Resp B/P (MAP) Pulse Ox O2 Delivery O2 Flow Rate FiO2 06/07/17 12:00 85 06/07/17 11:00 98.4 96 20 136/68 (90) 93 06/07/17 11:00 99 06/07/17 10:02 97 21 06/07/17 10:00 92 06/07/17 09:00 97 06/07/17 08:00 88 06/07/17 07:00 90 06/07/17 07:00 98.1 93 20 118/60 (79) 100 06/07/17 07:00 100 Room Air 06/07/17 06:39 90 06/07/17 06:00 17 06/07/17 05:00 88 06/07/17 04:02 76 06/07/17 03:08 97.6 88 17 102/57 (72) 96 06/07/17 03:00 76 06/07/17 02:00 76 06/07/17 01:06 17 06/07/17 01:06 17 06/07/17 01:00 78 06/07/17 00:00 78 06/06/17 23:22 97.7 83 17 106/61 (76) 97 06/06/17 23:00 83 06/06/17 22:00 89 06/06/17 21:09 99 Nasal Cannula 2.00 06/06/17 21:00 90 06/06/17 20:14 17 06/06/17 20:00 88 06/06/17 19:25 97.5 93 17 113/66 (82) 99 06/06/17 19:19 17 06/06/17 19:00 92 06/06/17 19:00 99 Nasal Cannula 2.00 06/06/17 18:00 88 06/06/17 17:00 90 06/06/17 16:00 93 06/06/17 15:06 97 Nasal Cannula 2.00 06/06/17 15:05 98.0 78 14 119/55 (76) 97 06/06/17 15:00 93 06/06/17 14:59 91 06/06/17 14:15 97.8 78 14 114/62 (79) 97 06/06/17 14:00 93 16 114/61 (78) 97 Nasal Cannula 2 06/06/17 14:00 14 06/06/17 13:45 93 16 115/61 (79) 96 Nasal Cannula 2 06/06/17 13:30 96 16 118/63 (81) 96 Nasal Cannula 2 06/06/17 13:15 94 16 114/63 (80) 96 Nasal Cannula 2 06/06/17 13:15 18 06/06/17 13:00 92 16 109/55 (73) 96 Nasal Cannula 2 06/06/17 12:47 98.2 101 16 113/57 (75) 98 Nasal Cannula 2 Labs: Laboratory Tests Test 06/07/17 04:58 White Blood Count 12.8 TH/MM3 (4.0-11.0) Red Blood Count 3.40 MIL/MM3 (4.00-5.30) Hemoglobin 9.9 GM/DL (11.6-15.3) Hematocrit 28.7 % (35.0-46.0) Mean Corpuscular Volume 84.5 FL (80.0-100.0) Mean Corpuscular Hemoglobin 29.0 PG (27.0-34.0) Mean Corpuscular Hemoglobin Concent 34.3 % (32.0-36.0) Red Cell Distribution Width 14.3 % (11.6-17.2) Platelet Count 261 TH/MM3 (150-450) Mean Platelet Volume 7.4 FL (7.0-11.0) Neutrophils (%) (Auto) 80.0 % (16.0-70.0) Lymphocytes (%) (Auto) 12.4 % (9.0-44.0) Monocytes (%) (Auto) 7.3 % (0.0-8.0) Eosinophils (%) (Auto) 0.0 % (0.0-4.0) Basophils (%) (Auto) 0.3 % (0.0-2.0) Neutrophils # (Auto) 10.2 TH/MM3 (1.8-7.7) Lymphocytes # (Auto) 1.6 TH/MM3 (1.0-4.8) Monocytes # (Auto) 0.9 TH/MM3 (0-0.9) Eosinophils # (Auto) 0.0 TH/MM3 (0-0.4) Basophils # (Auto) 0.0 TH/MM3 (0-0.2) CBC Comment DIFF FINAL Differential Comment Blood Urea Nitrogen 9 MG/DL (7-18) Creatinine 0.45 MG/DL (0.50-1.00) Random Glucose 145 MG/DL (74-106) Calcium Level 9.6 MG/DL (8.5-10.1) Sodium Level 136 MEQ/L (136-145) Potassium Level 4.3 MEQ/L (3.5-5.1) Chloride Level 100 MEQ/L (98-107) Carbon Dioxide Level 29.1 MEQ/L (21.0-32.0) Anion Gap 7 MEQ/L (5-15) Estimat Glomerular Filtration Rate 143 ML/MIN (>89) Result Diagram: 06/07/17 0458 06/07/17 0458 (1) Lung cancer (2) S/P lobectomy of lung (3) Colon cancer Problem Qualifiers (1) Lung cancer: Jose Hendrickson MD Jun 07, 2017 12:28
[2017-06-07] MEDS: PANTOPRAZOLE SOD 40 MG DELAYED RELEASE TAB PO SCH (21:19)
[2017-06-07] MEDS: DOCUSATE CALCIUM 240 MG CAP PO SCH (21:19)
[2017-06-08] VITALS (27 sets, daily range): BP systolic 136–153; BP diastolic 69–84; PULSE 85–116; RESP 18; TEMP 97.7–98.4; O2SAT 96–99
[2017-06-08] MEDS: RESP: ALBUTEROL 2.5 MG/3 ML NEB (SCH) NEB ×4 (03:35→20:37)
[2017-06-08] MEDS: PCA - TOTAL MG MORPHINE DELIVERED PER SHIFT SCH (05:03)
--- NOTE | 2017-06-08 08:00 | PD.CAR.PN ---
CVT Progress Note Subjective/Hospital Course: 56 yo lady with Colon cancer s/p resection with colostomy, found to have a left lung adenocarcinoma. She is now presenting for surgical resection. 06/06 Procedure: 1. Left Posterolateral Muscle Sparing Thoracotomy 2. Left Lower Lobectomy 3. Left Lingular Resection 4. Mediastinal Lymph Node Dissection 5. Intercostal Nerve Block 06/07 Doing well 1+ air-leak Maintain CT to drainage 06/08 Doing well No air-leak this am CT to water seal Possibly D/C CT tomorrow Objective: Vital Signs Date Time Temp Pulse Resp B/P (MAP) Pulse Ox O2 Delivery O2 Flow Rate FiO2 06/08/17 06:18 85 06/08/17 05:07 88 06/08/17 05:03 16 06/08/17 04:08 89 06/08/17 03:49 92 06/08/17 03:00 97.7 89 141/80 (100) 98 06/08/17 02:00 90 06/08/17 01:00 92 06/08/17 00:47 98.3 97 136/69 (91) 96 06/08/17 00:00 96 06/07/17 23:00 95 06/07/17 22:00 100 06/07/17 21:21 16 06/07/17 21:00 96 06/07/17 20:47 96 21 06/07/17 20:00 98.0 99 132/65 (87) 96 06/07/17 20:00 98 06/07/17 20:00 Room Air 06/07/17 19:00 97 06/07/17 18:00 96 06/07/17 17:00 95 06/07/17 16:07 90 06/07/17 15:00 90 06/07/17 15:00 98.2 85 20 121/62 (81) 99 06/07/17 14:00 92 06/07/17 13:00 88 06/07/17 12:00 85 06/07/17 11:00 98.4 96 20 136/68 (90) 93 06/07/17 11:00 99 06/07/17 10:02 97 21 06/07/17 10:00 92 06/07/17 09:00 97 06/07/17 08:00 88 Result Diagram: 06/07/17 0458 06/07/17 0458 (1) Lung cancer (2) S/P lobectomy of lung (3) Colon cancer Problem Qualifiers (1) Lung cancer: Jose Hendrickson MD Jun 08, 2017 08:00
[2017-06-08] MEDS: SODIUM CHLORIDE 0.9% FLUSH 10 ML FLUSH IV FLUSH SCH ×2 (09:00→21:33)
[2017-06-08] MEDS: DOCUSATE CALCIUM 240 MG CAP PO SCH (21:00)
[2017-06-08] MEDS: PANTOPRAZOLE SOD 40 MG DELAYED RELEASE TAB PO SCH (21:33)
[2017-06-09] VITALS (10 sets, daily range): BP systolic 137–140; BP diastolic 69–78; PULSE 78–93; RESP 18; TEMP 98.1–98.4; O2SAT 98
[2017-06-09] MEDS: RESP: ALBUTEROL 2.5 MG/3 ML NEB (SCH) NEB ×2 (03:29→10:00)
--- NOTE | 2017-06-09 07:05 | PD.CAR.PN ---
CVT Progress Note Subjective/Hospital Course: 56 yo lady with Colon cancer s/p resection with colostomy, found to have a left lung adenocarcinoma. She is now presenting for surgical resection. 06/06 Procedure: 1. Left Posterolateral Muscle Sparing Thoracotomy 2. Left Lower Lobectomy 3. Left Lingular Resection 4. Mediastinal Lymph Node Dissection 5. Intercostal Nerve Block 06/07 Doing well 1+ air-leak Maintain CT to drainage 06/08 Doing well No air-leak this am CT to water seal Possibly D/C CT tomorrow 06/09 Doing well D/C CT Discharge home in am Objective: Vital Signs Date Time Temp Pulse Resp B/P (MAP) Pulse Ox O2 Delivery O2 Flow Rate FiO2 06/09/17 06:00 78 06/09/17 05:00 86 06/09/17 04:00 90 06/09/17 03:00 84 06/09/17 03:00 98.4 90 137/78 (97) 98 06/09/17 02:00 78 06/09/17 01:00 84 06/09/17 00:00 88 06/08/17 23:00 98 06/08/17 23:00 98.0 96 140/79 (99) 97 06/08/17 22:00 96 06/08/17 21:00 106 06/08/17 20:43 98 21 06/08/17 20:00 90 06/08/17 19:00 98 06/08/17 19:00 98.4 98 148/83 (104) 96 06/08/17 18:28 102 06/08/17 17:06 100 06/08/17 16:17 94 06/08/17 15:49 90 06/08/17 15:49 98.0 94 18 145/75 (98) 97 06/08/17 14:06 116 06/08/17 13:00 95 06/08/17 12:00 93 06/08/17 11:40 100 06/08/17 11:40 98.2 94 18 153/84 (107) 99 06/08/17 10:11 98 21 06/08/17 10:03 91 06/08/17 09:48 93 06/08/17 08:15 88 06/08/17 08:15 98 Room Air 06/08/17 08:15 98.1 93 18 148/82 (104) 98 Result Diagram: 06/07/17 0458 06/07/17 0458 (1) Lung cancer (2) S/P lobectomy of lung (3) Colon cancer Problem Qualifiers (1) Lung cancer: Jose Hendrickson MD Jun 09, 2017 07:05
[2017-06-09] MEDS: SODIUM CHLORIDE 0.9% FLUSH 10 ML FLUSH IV FLUSH SCH (07:55)
--- NOTE | 2017-06-09 09:36 | HHI.DS ---
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 She is now presenting for surgical resection. 06/06 Procedure: 1. Left Posterolateral Muscle Sparing Thoracotomy 2. Left Lower Lobectomy 3. Left Lingular Resection 4. Mediastinal Lymph Node Dissection 5. Intercostal Nerve Block 06/07 Doing well 1+ air-leak Maintain CT to drainage 06/08 Doing well No air-leak this am CT to water seal Possibly D/C CT tomorrow 06/09 Doing well D/C CT Discharge home Pt Condition on Discharge: Good Discharge Disposition: Disch w/ Home Health Serv Discharge Instructions DIET: Follow Instructions for: As Tolerated, No Restrictions Activities you can perform: Full Weight Bearing, Shower Only-No Bath Activities to avoid: Lifting/Bending, Strenuous Activity, Bathing, Driving Follow up Referrals: Appointment for Follow Up - 1 Week with Jose Hendrickson MD Oncology/Hematology - 2 Weeks with Willie Whitmore MD PCP Follow-up - 2 Weeks with Abby Lorenzo MD New Medications: Docusate Calcium (Sm Stool Softener) 240 Mg Cap 240 MG PO HS for Constipation, #28 CAP Hydrocodone/Acetaminophen (Hydrocodone-Acetamin 5-325 mg) 5 Mg-325 Mg Tablet 1 TAB PO Q3H PRN for PAIN SCALE 3 TO 5, #40 TAB Continued Medications: Cholecalciferol (Vitamin D-1000) 1,000 Unit Tab 1000 UNITS PO DAILY for Nutritional Supplement, #1 BOTTLE 0 Refills Multiple Vitamin (Multi-Vitamin Daily) 1 Tab Tab 1 TAB PO DAILY for Nutritional Supplement, TAB 0 Refills Jose Hendrickson MD Jun 09, 2017 09:36
[2017-06-09] MEDS ORDERED: HYDR-3516 PO (09:39)
[2017-06-09] MEDS ORDERED: DOCU1CAP26 PO (09:39)
--- NOTE | 2017-06-09 09:40 | HHI.FF ---
Face to Face Verification Diagnosis: (1) Lung cancer (2) Colon cancer (3) S/P lobectomy of lung Home Health Nursing Order: Medical education Wound care and dressing changes I have seen patient Raine Delgado on 06/09/17. My clinical findings support the need for the requested home health care services because: Deconditioned w/ increased weakness I certify that my clinical findings support that this patient is homebound because: Post-op weakness Jose Hendrickson MD Jun 09, 2017 09:40
== END 2017-06-09 10:51 | disposition home health service (06) | DRG 164 ==
LOC: HSDI 06:12 → HCPC 14:03
PROVIDERS: ADMIT Thoracic Surgery (Cardiothoracic Vascular Surgery); ATTEND Thoracic Surgery (Cardiothoracic Vascular Surgery)
PROC: 07B70ZZ Excision of Thorax Lymphatic, Open Approach (ICD-10-PCS; 2017-06-06)
PROC: 0BBH0ZZ Excision of Lung Lingula, Open Approach (ICD-10-PCS; 2017-06-06)
PROC: 3E0T3BZ Introduction of Anesthetic Agent into Peripheral Nerves and Plexi, Percutaneous Approach (ICD-10-PCS; 2017-06-06)
PROC: 0BTJ0ZZ Resection of Left Lower Lung Lobe, Open Approach (ICD-10-PCS; principal; 2017-06-06 08:54)
DX: C34.32 Malignant neoplasm of lower lobe, left bronchus or lung (principal); C77.1 Secondary and unspecified malignant neoplasm of intrathoracic lymph nodes; C78.01 Secondary malignant neoplasm of right lung; Z85.038 Personal history of other malignant neoplasm of large intestine; Z88.5 Allergy status to narcotic agent; Z93.3 Colostomy status
CPT/HCPCS: 36415; 71045; 80048; 81001; 85025; 85027; 85610; 85730; 86850; 86900; 86901; 86920; 87086; 88112; 88305; 88307; 88331; 93005; 94150; 94640; 94664; C9290; J0131; J0690; J1100; J1885; J2250; J2270; J2370; J2405; J2710; J3010; J7040; J7050; J7120; J7613

== ENCOUNTER 2017-07-12 13:23 | Inpatient (IN) | payer OTHER ==
[~2017-07-12] VITALS: Ht 170.2 cm; Wt 77.2 kg
[~2017-07-12 13:23] MED LIST changes: +DEXAMETHASONE SOD PHOS 4 MG/ML VIAL IV ONE; +GLYCOPYRROLATE 1 MG/5 ML SYRINGE IV PUSH ONE; +LIDOCAINE HCL 1% PF 5 ML SYRINGE OTHER ONE; +NEOSTIGMINE 5 MG/5 ML SYRINGE IV PUSH ONE; +ONDANSETRON HCL 4 MG/2 ML VIAL IV PUSH ONE; +PHENYLEPH/NS 1000 MCG/10 ML SYR IV ONE; +PROPOFOL 200 MG/20 ML AMP IV ONE; +ROCURONIUM INJ 50 MG/5 ML SYRINGE IV PUSH ONE; +SUCCINYLCHOLINE CHLORIDE 100 MG/5 ML SYRINGE IV PUSH ONE
[2017-07-12] MEDS ORDERED: ceFAZolin 1,000 MG/NS 100 ML IV SCH ×2 (14:00)
[2017-07-12] MEDS ORDERED: POVIDONE IODINE 5% (ANTISEPSIS KIT) 4 APPLICATIONS EACH NARE PRN (14:00)
[2017-07-12] MEDS ORDERED: DEXT 5%-NACL 0.9% 1000 ML INJ 1,000 ML IV SCH (14:00)
[2017-07-12] MEDS ORDERED: METOPROLOL TARTRATE 25 MG TAB PO PRN (14:00)
[2017-07-12] MEDS ORDERED: CHLORHEXIDINE GLUCONATE 2 % 1 PACK (2 CLOTHS) TOPICAL PRN (14:00)
[2017-07-12] MEDS ORDERED: SODIUM CHLORID 0.9% 500 ML IV PRN (14:00)
[2017-07-12] MEDS ORDERED: LACTATED RINGER'S 1000 ML IV PRN (14:00)
[2017-07-12] MEDS ORDERED: ALVIMOPAN 12 MG CAPSULE - On Call PO SCH (14:00)
[2017-07-12] MEDS ORDERED: METRONIDAZOLE 500 MG/100 ML ISONTONIC SOLN IV SCH (14:00)
[2017-07-12 14:27] LABS: AUTOMATED NEUTROPHIL # 4.6 TH/MM3 (1.8-7.7); BASOPHIL # 0.1 TH/MM3 (0-0.2); EOSINOPHIL # 0.2 TH/MM3 (0-0.4); EOSINOPHIL % 2.2 % (0.0-4.0); HEMATOCRIT 35.7 % (35.0-46.0); HEMOGLOBIN 12.2 GM/DL (11.6-15.3); LYMPH % 24.6 % (9.0-44.0); LYMPHOCYTE # 1.7 TH/MM3 (1.0-4.8); MEAN CELL VOLUME 83.1 FL (80.0-100.0); MEAN CORPUSCULAR HEMOGLOBIN 28.4 PG (27.0-34.0); MEAN CORPUSCULAR HGB CONC 34.2 % (32.0-36.0); MEAN PLATELET VOLUME 8.1 FL (7.0-11.0); MONO % 7.4 % (0.0-8.0); MONOCYTE # 0.5 TH/MM3 (0-0.9); NEUT % 64.8 % (16.0-70.0); PLATELET COUNT 261 TH/MM3 (150-450); RED BLOOD COUNT 4.29 MIL/MM3 (4.00-5.30); RED CELL DISTRIBUTION WIDTH 14.7 % (11.6-17.2)
[2017-07-12 14:52] LABS: BICARBONATE 30.3 MEQ/L (21.0-32.0); CALCIUM 10.2 MG/DL (8.5-10.1); CREATININE 0.63 MG/DL (0.50-1.00)
--- NOTE | 2017-07-12 15:17 | PD.HP.UP ---
H&P Update Note The Pre-Admit History and Physical Examination regarding the above named patient was reviewed (including, but not limited to, vital signs, heart, lungs, co-morbid conditions), and upon re-examination it is noted that: the patient's condition has not significantly changed since the last examination. Abram De La Cruz MD Jul 12, 2017 15:17
[2017-07-12] MEDS ORDERED: ACETAMINOPHEN 1000 MG/100 ML 100 ML IV ONE (16:13)
[2017-07-12] MEDS: D5-NS + KCL 20 MEQ INJ 1,000 ML IV SCH (18:48)
[2017-07-12] MEDS ORDERED: ENALAPRILAT 1.25 MG/ML VIAL IV PUSH PRN (19:00)
[2017-07-12] MEDS ORDERED: Post-op Orders (for Pharmacy) XX ONE (19:00)
[2017-07-12] MEDS ORDERED: KETOROLAC TROMETHAMINE 30 MG/ML (IVP) VIAL IVP PRN (19:00)
[2017-07-12] MEDS ORDERED: BENZOCAINE 6 MG/MENTHOL 10 MG LOZENGE BUCCAL PRN (19:00)
[2017-07-12] MEDS ORDERED: ACETAMINOPHEN 325 MG TAB PO PRN (19:00)
[2017-07-12] MEDS ORDERED: ONDANSETRON HCL 4 MG/2 ML VIAL IV PUSH PRN (19:00)
[2017-07-12] MEDS ORDERED: POTASSIUM CHLOR 40 MEQ PREMIX 100 ML IV PRN (19:00)
[2017-07-12] MEDS ORDERED: ENALAPRILAT 2.5 MG/2 ML VIAL IV PUSH PRN (19:00)
[2017-07-12] MEDS ORDERED: POTASSIUM CHLOR 20 MEQ PREMIX 100 ML IV PRN (19:00)
[2017-07-12] MEDS ORDERED: NALOXONE HCL 0.4 MG/ML AMP IV PUSH PRN (19:00)
[2017-07-12] MEDS ORDERED: ACETAMINOPHEN/HYDROcodone 325 MG/5 MG TAB PO PRN ×2 (19:00)
[2017-07-12] MEDS ORDERED: MORPHINE SULFATE 30 MG/30 ML PCA IV SCH (19:00)
[2017-07-12] MEDS ORDERED: BUPIVACAINE HCL PF 0.5% 30 ML VIAL NB SCH (19:00)
[2017-07-12] MEDS ORDERED: DO NOT ADM ANY ANTICOAGULANT DRUGS PRN (19:15)
[2017-07-12] MEDS: HEPARIN SODIUM - SQ 10,000 UNITS/ML VIAL SQ SCH (20:00)
[2017-07-12] MEDS: METOCLOPRAMIDE HCL 10 MG/2 ML VIAL IVS SCH (21:00)
[2017-07-12] MEDS: PCA - TOTAL MG MORPHINE DELIVERED PER SHIFT SCH (22:00)
[2017-07-12 23:43] VITALS: BP 130/78; PULSE 75; PULSE 83; RESP 18; TEMP 98.2; O2SAT 98
[2017-07-13] VITALS (7 sets, daily range): BP systolic 122–142; BP diastolic 69–85; PULSE 73–91; RESP 16; TEMP 98.6–99.3; O2SAT 95–98
[2017-07-13] MEDS: metroNIDAZOLE 500 MG INJ 100 ML IV SCH ×3 (00:38→16:47)
[2017-07-13] MEDS: D5-NS + KCL 20 MEQ INJ 1,000 ML IV SCH ×3 (01:28→15:37)
[2017-07-13] MEDS: PCA - TOTAL MG MORPHINE DELIVERED PER SHIFT SCH ×3 (06:00→21:01)
[2017-07-13 07:13] LABS: AUTOMATED NEUTROPHIL # 10.6 TH/MM3 (1.8-7.7); BASOPHIL % 0.3 % (0.0-2.0); HEMATOCRIT 34.1 % (35.0-46.0); HEMOGLOBIN 11.5 GM/DL (11.6-15.3); LYMPH % 6.8 % (9.0-44.0); LYMPHOCYTE # 0.8 TH/MM3 (1.0-4.8); MEAN CELL VOLUME 84.7 FL (80.0-100.0); MEAN CORPUSCULAR HEMOGLOBIN 28.5 PG (27.0-34.0); MEAN CORPUSCULAR HGB CONC 33.7 % (32.0-36.0); MEAN PLATELET VOLUME 7.8 FL (7.0-11.0); MONO % 5.2 % (0.0-8.0); MONOCYTE # 0.6 TH/MM3 (0-0.9); NEUT % 87.7 % (16.0-70.0); PLATELET COUNT 183 TH/MM3 (150-450); RED BLOOD COUNT 4.02 MIL/MM3 (4.00-5.30); RED CELL DISTRIBUTION WIDTH 14.3 % (11.6-17.2)
[2017-07-13 07:50] LABS: BICARBONATE 23.9 MEQ/L (21.0-32.0); CALCIUM 9.3 MG/DL (8.5-10.1); CREATININE 0.62 MG/DL (0.50-1.00)
[2017-07-13] MEDS: HEPARIN SODIUM - SQ 10,000 UNITS/ML VIAL SQ SCH ×2 (08:25→20:19)
[2017-07-13] MEDS: METOCLOPRAMIDE HCL 10 MG/2 ML VIAL IVS SCH ×2 (08:25→20:19)
[2017-07-13] MEDS: ALVIMOPAN 12 MG CAPSULE PO SCH ×2 (08:26→20:19)
[2017-07-13] MEDS: PANTOPRAZOLE SOD 40 MG DELAYED RELEASE TAB PO SCH (08:26)
[2017-07-13] MEDS: PANTOPRAZOLE SODIUM 40 MG VIAL IVP SCH (08:42)
[2017-07-13] MEDS ORDERED: ALVIMOPAN 12 MG CAPSULE - Post-op dosing PO SCH (09:00)
--- NOTE | 2017-07-13 10:39 | HHI.PR ---
Subjective Remarks Feels well. No pain. No N or V. Objective Vital Signs Date Time Temp Pulse Resp B/P (MAP) Pulse Ox O2 Delivery O2 Flow Rate FiO2 07/13/17 07:49 96 21 07/13/17 07:00 74 07/13/17 07:00 98.6 82 16 131/75 (93) 98 07/13/17 06:00 18 07/13/17 03:00 98.6 80 16 122/69 (86) 96 07/13/17 03:00 73 07/12/17 23:43 98.2 83 18 130/78 (95) 98 07/12/17 23:43 75 07/12/17 23:00 79 20 112/58 (76) 93 Room Air 07/12/17 22:00 77 24 124/60 (81) 92 Room Air 07/12/17 22:00 15 07/12/17 21:00 76 24 129/72 (91) 95 Room Air 07/12/17 20:00 78 24 125/75 (92) 96 Room Air 07/12/17 19:45 82 24 120/69 (86) 96 Room Air 07/12/17 19:33 20 07/12/17 19:30 77 24 128/67 (87) 98 Room Air 07/12/17 19:15 81 17 127/66 (86) 100 Nasal Cannula 1 07/12/17 19:00 83 22 126/65 (85) 100 Nasal Cannula 3 07/12/17 18:51 98.3 86 15 130/66 (87) 100 Nasal Cannula 3 07/12/17 14:05 98.4 87 16 128/85 (99) 99 I/O 07/12/17 07/12/17 07/12/17 07/13/17 07/13/17 07/13/17 07:00 15:00 23:00 07:00 15:00 23:00 Intake Total 1200 ml 1100 ml Output Total 340 ml 350 ml Balance 860 ml 750 ml Intake Oral 0 ml IV Total 1100 ml Other 1200 ml Output Urine Total 330 ml 350 ml Estimated Blood Loss 10 ml # Voids 1 # Bowel Movements 0 Result Diagram: 07/13/17 0530 07/13/17 0530 Objective Remarks VS-S Abd: soft,dressing dry I&Os and labs-OK Assessment and Plan Assessment and Plan Stable POD#1 Transfer to . CLD,decrease IVs Sung Preston MD Jul 13, 2017 10:39
[2017-07-14] MEDS: D5-NS + KCL 20 MEQ INJ 1,000 ML IV SCH ×3 (02:53→22:16)
[2017-07-14 03:41] VITALS: BP 152/82; PULSE 85; TEMP 98.3; O2SAT 95
[2017-07-14] MEDS: PCA - TOTAL MG MORPHINE DELIVERED PER SHIFT SCH ×3 (05:43→22:00)
[2017-07-14 07:12] VITALS: BP 140/81; PULSE 72; RESP 16; TEMP 99.1; O2SAT 98
[2017-07-14] MEDS: PANTOPRAZOLE SODIUM 40 MG VIAL IVP SCH (09:00)
[2017-07-14] MEDS: HEPARIN SODIUM - SQ 10,000 UNITS/ML VIAL SQ SCH ×2 (09:03→22:13)
[2017-07-14] MEDS: PANTOPRAZOLE SOD 40 MG DELAYED RELEASE TAB PO SCH (09:03)
[2017-07-14] MEDS: METOCLOPRAMIDE HCL 10 MG/2 ML VIAL IVS SCH ×2 (09:03→22:11)
[2017-07-14] MEDS: ALVIMOPAN 12 MG CAPSULE PO SCH ×2 (09:03→22:10)
--- NOTE | 2017-07-14 10:42 | HHI.PR ---
Subjective Remarks Feels well. No pain. No N or V. No BMs. Wants to go home Objective Vital Signs Date Time Temp Pulse Resp B/P (MAP) Pulse Ox O2 Delivery O2 Flow Rate FiO2 07/14/17 07:12 99.1 72 16 140/81 (100) 98 07/14/17 05:43 18 07/14/17 03:41 98.3 85 152/82 (105) 95 07/13/17 23:33 99.3 91 142/82 (102) 97 07/13/17 21:08 98.8 90 142/85 (104) 98 07/13/17 21:01 18 07/13/17 15:00 98.7 83 16 133/72 (92) 95 07/13/17 13:54 16 07/13/17 11:00 98.7 81 16 135/73 (93) 98 07/13/17 11:00 86 I/O 07/13/17 07/13/17 07/13/17 07/14/17 07/14/17 07/14/17 07:00 15:00 23:00 07:00 15:00 23:00 Intake Total 1100 ml 200 ml 1904 ml 243 ml Output Total 350 ml 375 ml 900 ml Balance 750 ml 200 ml 1529 ml -657 ml Intake Oral 0 ml 960 ml 243 ml IV Total 1100 ml 200 ml 944 ml Output Urine Total 350 ml 375 ml 900 ml # Bowel Movements 0 0 Result Diagram: 07/13/17 0530 07/13/17 0530 Objective Remarks VS-S Abd: soft,dressing removed, wound clean I&Os and labs-OK Assessment and Plan Assessment and Plan Stable POD#2 Transfer to 7. Sung Benson MD Jul 14, 2017 10:42
[2017-07-14 11:00] VITALS: BP 139/81; PULSE 82; RESP 16; TEMP 99.2; O2SAT 97
[2017-07-14 12:11] LABS: AUTOMATED NEUTROPHIL # 6.8 TH/MM3 (1.8-7.7); BASOPHIL # 0.1 TH/MM3 (0-0.2); BASOPHIL % 0.6 % (0.0-2.0); EOSINOPHIL # 0.7 TH/MM3 (0-0.4); HEMATOCRIT 33.1 % (35.0-46.0); HEMOGLOBIN 11.2 GM/DL (11.6-15.3); LYMPH % 12.4 % (9.0-44.0); LYMPHOCYTE # 1.2 TH/MM3 (1.0-4.8); MEAN CELL VOLUME 84.2 FL (80.0-100.0); MEAN CORPUSCULAR HEMOGLOBIN 28.5 PG (27.0-34.0); MEAN CORPUSCULAR HGB CONC 33.9 % (32.0-36.0); MEAN PLATELET VOLUME 7.9 FL (7.0-11.0); MONO % 7.7 % (0.0-8.0); MONOCYTE # 0.7 TH/MM3 (0-0.9); NEUT % 72.3 % (16.0-70.0); PLATELET COUNT 187 TH/MM3 (150-450); RED BLOOD COUNT 3.93 MIL/MM3 (4.00-5.30); RED CELL DISTRIBUTION WIDTH 14.4 % (11.6-17.2); WHITE BLOOD COUNT 9.4 TH/MM3 (4.0-11.0)
[2017-07-14 12:36] LABS: BICARBONATE 24.9 MEQ/L (21.0-32.0); CALCIUM 9.8 MG/DL (8.5-10.1); CREATININE 0.68 MG/DL (0.50-1.00)
--- NOTE | 2017-07-14 12:42 | MP ---
cc: Abram De La Cruz MD, Richard MD DATE OF OPERATION: 07/12/2017 PREOPERATIVE DIAGNOSIS: History of colon cancer, attention to colostomy. PROCEDURE: Exploratory laparotomy with segmental colon resection and closure of colostomy. POSTOPERATIVE DIAGNOSIS: History of colon cancer, attention to colostomy. SURGEON: Abram De La Cruz MD DESCRIPTION OF PROCEDURE: The patient was placed in the supine position. After adequate general anesthesia, her abdomen was prepped with Betadine solution and draped in the usual sterile fashion. Elliptical incision was made over the colostomy, dissecting the proximal and distal limbs free from the subcutaneous tissues. The fascial attachments were released and the bowel mobilized up and above the abdominal wound. Omental adhesions were taken down and the bowel mobilized further for preparation for anastomosis. Proximal and distal limbs were identified and the avascular plane created in both limbs proximally and distally. The bowel was then divided using the CHARLES stapling device. The intervening mesentery taken between Kellys obtaining hemostasis with Vicryl ties. Bowel continuity was then restored by firing the CHARLES stapler across the antimesenteric ends of the bowel, closing the enterotomy with a TA 60 stapler. The mesenteric defect closed with a #1 Vicryl suture and the 3-0 Vicryl crotch suture was placed as well. The bowel was then returned to the abdominal cavity. Exploration locally failed to reveal any signs of intra-abdominal cancer, and the liver was a little congested, but showed no signs of metastatic disease. The abdominal wound was then closed anatomically in 2 layers using #1 PDS sutures to reapproximate the respective fascial layers. The subcutaneous tissue was irrigated copiously and the skin closed with a row of surgical ganesh. Wound area washed with normal saline and dried, sterile dressing of Telfa and gauze applied. The patient tolerated the procedure quite well and was brought to the recovery room in stable condition. The sponge and needle counts were correct at the end of the procedure. Abram De La Cruz MD AHR/SB , 11:23 AM , 12:41 PM
[2017-07-14 15:00] VITALS: BP 149/82; PULSE 89; RESP 16; TEMP 99.2; O2SAT 98
[2017-07-14 19:00] VITALS: BP 148/81; PULSE 77; RESP 16; TEMP 99.2; O2SAT 96
[2017-07-14 23:00] VITALS: BP 134/81; PULSE 80; RESP 16; TEMP 99.4; O2SAT 96
[2017-07-15 03:50] VITALS: BP 136/81; PULSE 75; RESP 16; O2SAT 98
[2017-07-15] MEDS: PCA - TOTAL MG MORPHINE DELIVERED PER SHIFT SCH ×2 (06:00→14:00)
[2017-07-15 07:26] VITALS: BP 128/81; PULSE 82; RESP 16; TEMP 98.7; O2SAT 98
[2017-07-15 08:42] VITALS: O2SAT 95
[2017-07-15] MEDS: PANTOPRAZOLE SODIUM 40 MG VIAL IVP SCH (09:00)
[2017-07-15] MEDS: HEPARIN SODIUM - SQ 10,000 UNITS/ML VIAL SQ SCH (09:35)
[2017-07-15] MEDS: METOCLOPRAMIDE HCL 10 MG/2 ML VIAL IVS SCH (09:36)
[2017-07-15] MEDS: PANTOPRAZOLE SOD 40 MG DELAYED RELEASE TAB PO SCH (09:37)
[2017-07-15] MEDS: ALVIMOPAN 12 MG CAPSULE PO SCH (09:37)
[2017-07-15 11:35] VITALS: BP 131/85; PULSE 85; RESP 16; O2SAT 98
[2017-07-15 15:04] VITALS: BP 131/70; PULSE 84; RESP 16; TEMP 98.6; O2SAT 98
== END 2017-07-15 16:42 | disposition home or self-care (01) | DRG 331 ==
LOC: HSDI 13:23 → HCPC 20:08 → HCVI 23:52 → HCIS 07-13 19:00
PROVIDERS: ADMIT Colon & Rectal Surgery; ATTEND Colon & Rectal Surgery
PROC: 0DBE0ZZ Excision of Large Intestine, Open Approach (ICD-10-PCS; principal; 2017-07-12 17:24)
DX: Z43.3 Encounter for attention to colostomy (principal); Z85.038 Personal history of other malignant neoplasm of large intestine
CPT/HCPCS: 80048; 85025; 86850; 86900; 86901; 94150; J0131; J0330; J0690; J1100; J1644; J2270; J2370; J2405; J2710; J2765; J3010; J3480; J7120